=== PATIENT | male | born 1955 | race Caucasian/White ===

== ENCOUNTER 2017-10-10 00:12 | Inpatient (IN) | payer OTHER ==
[2017-10-10 01:28] LABS: Troponin I Less than 0.010 ng/mL (< 0.028)
[2017-10-10 03:56] LABS: Troponin I Less than 0.010 ng/mL (< 0.028)
[2017-10-10] MEDS ORDERED: Fentanyl 100 MCG/2 ML VIAL ONE (05:50)
--- NOTE | 2017-10-10 08:09 | CT ---
PRELIMINARY REPORT/[facility]/EMERGENCY AFTER HOURS PROCEDURE: EXAM: CT Abdomen and Pelvis With Intravenous Contrast EXAM DATE/TIME: Exam ordered 10/10/2017 2:35 AM CLINICAL HISTORY: 62 years old, male; Pain; Abdominal pain; Generalized; Patient HX: 62m transfer from [facility] for generali zed weakness. Found to be in a fib with rvr at a rate of 140's given lovenox and started on dilt drip . Patient now complaining of diffuse abdominal pain. Has not been taking coumadin in 1 week. Denies chest pain and shortness of breath TECHNIQUE: Axial computed tomography images of the abdomen and pelvis with intravenous contrast. All CT scans at this facility use one or more dose reduction techniques, viz.: automated exposure control; ma/kV adjustment per patient size (including targeted exams where dose is matched to indication; i.e. head); or iterative reconstruction technique. Coronal reformatted images were created and reviewed. CONTRAST: 100 mL of ISO 370 administered intravenously. COMPARISON: No relevant prior studies available. FINDINGS: Lower thorax: No acute findings. ABDOMEN: Liver: No pneumatosis or portal/mesenteric venous gas. Gallbladder and bile ducts: Unremarkable. No calcified stones. No ductal dilation. Pancreas: Unremarkable. No mass. No ductal dilation. Spleen: Unremarkable. No splenomegaly. Adrenals: Unremarkable. No mass. Kidneys and ureters: Unremarkable. No solid mass. No hydronephrosis. Stomach and bowel: Inflammatory thickening of the wall of short segments of distal ileum, including t he terminal ileum, as well as the colon, consistent with enteritis and colitis. No intestinal obstruc tion. Appendix: Appendix not visualized. No evidence of appendicitis. PELVIS: Bladder: Unremarkable. No mass. Reproductive: Unremarkable as visualized. ABDOMEN and PELVIS: Intraperitoneal space: Trace volume ascites. No pneumoperitoneum or abscess. Bones/joints: No acute fracture. No dislocation. Soft tissues: Bilateral fat containing inguinal hernias. 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 No rupture. SMV and SMA are patent as far as can be traced. Lymph nodes: Unremarkable. No enlarged lymph nodes. IMPRESSION: 1. Enteritis, including the terminal ileum, and colitis. Findings are most likely a result of infecti on or inflammatory bowel disease. Ischemia less likely but not excluded. No specific ancillary findin gs of bowel ischemia. 2. Trace volume ascites. Thank you for allowing us to participate in the care of your patient. Dictated and Authenticated by: Brent Lacey MD 10/10/2017 3:23 AM Central Time ([place] & [place]) FINAL REPORT CT ABDOMEN AND PELVIS WITH IV CONTRAST: FINDINGS/IMPRESSION: I agree with the preliminary report given by Dr. Brent Lacey of [facility]. Additionally, there is colo atul diverticulosis without diverticulitis. POS: OFF
[2017-10-10] MEDS ORDERED: DEXTROSE IVPB SCH (08:15)
[2017-10-10] MEDS ORDERED: AMIODARONE HCL IVPB SCH (08:15)
[2017-10-10] MEDS ORDERED: WATER IVPB SCH (08:15)
[2017-10-10] MEDS ORDERED: ADMIXTURE FEE IVPB SCH (08:15)
[2017-10-10] MEDS ORDERED: Lorazepam 2 MG/ML VIAL ONE (09:05)
[2017-10-10] MEDS ORDERED: Zolpidem Tartrate 5 MG TAB PO PRN (11:07)
[2017-10-10] MEDS ORDERED: Acetaminophen 325 MG TAB PO PRN (11:07)
[2017-10-10 11:11] VITALS: BMI 16.0
[2017-10-10] MEDS ORDERED: Lorazepam 2 MG/ML VIAL SLOW IVP PRN ×2 (11:18→21:49)
[2017-10-10] MEDS ORDERED: Sodium Chloride 0.9% 1,000 ML IV SCH ×4 (11:45→21:45)
[2017-10-10] MEDS ORDERED: Enoxaparin Sodium 60 MG/0.6 ML SYRINGE SC SCH (12:00)
--- NOTE | 2017-10-10 12:34 | HP ---
CHIEF COMPLAINT: Palpitation and weakness. HISTORY OF PRESENT ILLNESS: This is a 62-year-old male admitted to the hospital because of palpitati ons, weakness, as well as having some abdominal pain. Patient's history obtained from his daughter a s he is a very poor history provider. A 62-year-old male, who apparently has a significant history f or coronary artery bypass grafting x3, hypertension, history of diabetes, a 60 pound weight loss in t he last 3-4 months per daughter, and the patient presents with a mild complaints of abdominal pain an d palpitations. Patient states that he has had a history of atrial fibrillation in the past and has not kept up with his medications, went to another hospital and was transferred here for further manag ement and care. The patient states that he does not have any nausea, vomiting, diarrhea, constipatio n, chest pains, fevers, or chills. Does admit to some shortness of breath on exertion. Patient also admits to smoking 1-2 packs of cigarettes a day for the past 50 years. The patient denies any prior history of strokes, but per daughter, he has had a history of cardiac bypass x3, was apparently a di abetic in the past; however, was recently told that he does not require anymore medications or pills given the significant amount of weight loss that he has had, as well as properly controlled blood sug ars. The patient otherwise has no other complaints. No alleviating or aggravating factors. The pat ient seen and examined in the emergency room. Daughter at bedside. ALLERGIES: CODEINE, PENICILLIN, PROTAMINE, patient also admits allergies to CLONAZEPAM; however, raz es VALIUM at home. PAST MEDICAL HISTORY: Chronic smoking history, binge drinking, cardiac bypass x3, hypertension, weig ht loss, and diabetes mellitus type 2. FAMILY HISTORY: Positive for diabetes, high blood pressure, and stroke. SOCIAL HISTORY: The patient admits to smoking a pack or 2 cigarettes a day for the past 50 years. T he patient also admits to binge drinking, last drink was approximately a week ago. HOME MEDICATIONS: See MAR. REVIEW OF SYSTEMS: Twelve-point review of systems performed, pertinent positives in the HPI, otherwi se negative. PHYSICAL EXAMINATION: VITAL SIGNS: Blood pressure was 118/90, heart rate atrial fibrillation rhythm of 109, respiratory ra te 12, and saturations 100% on 2 liters nasal cannula. GENERAL: Patient appearing very fidgety; however, in no acute distress, sitting in bed, appears very frail and weak. HEENT: Head is normocephalic, atraumatic. Pupils equal, round, reactive to light and accommodation. NECK: Supple. Palpable nontender, mobile thyroid. Oral cavity moist and pink. CARDIOVASCULAR: Irregular rate and rhythm. S1 and S2 appreciated. Faint systolic ejection murmur 1 /6 also appreciated. LUNGS: Wheezing noted in all lung castillo. Aerating well. No changes in AP diameter. ABDOMEN: Soft, nontender, positive bowel sounds. EXTREMITIES: 2+ peripheral pulses. No loss of sensory function or motor function. NEUROLOGIC: Cranial nerves II-XII intact. Alert, oriented x3, slow speech; however, does answer que stions appropriately. LABORATORY DATA: Pending. First set of troponins is less than 0.01. The patient had a CT scan of t he abdomen and pelvis done with contrast, which stated that the patient may have a neuritis of the te rminal ileum and colitis as well likely related to infectious process, colonic diverticulosis without diverticulitis also noted. ASSESSMENT AND PLAN: 1. Atrial fibrillation. 2. Hypertension. 3. Coronary artery disease. 4. Hyperlipidemia. 5. Diabetes mellitus type 2. 6. Weight loss. 7. Smoking abuse, nicotine abuse. 8. Alcohol abuse and binge drinking. 9. Enteritis. 10. At this point in time, we will admit the patient to the hospital. Consult, economic geographer Cardiology. Cardizem drip unavailable. We will start the patient on amiodarone drip. The patient does have a C HADS2-VASc score of 3. We will start the patient on Lovenox 100 q.12 hours. The patient's baseline weight is around 50 kilograms. 11. Target blood pressure of 120-140 systolic. 12. We will get an A1c and start the patient on a sliding scale if the A1c indicates the patient is diabetic. 13. IV fluids will be held at this point in time, patient can have a cardiac diet. 14. PT and OT evaluation. 15. We will provide the patient with Ativan for anxiety q.12 hours. 16. We will obtain TSH, urinalysis, urine drug screen, CBC, CMP, and liver function test. 17. We will follow up with lab work in a.m. and make any further adjustments as appropriate. 18. Case and plan discussed with the patient and the patient's daughter. They wish to have a code s tatus of FULL CODE for now; however, state that depending on results, they are open to changing code status to DNR/DNI after discussion with family. Case and plan discussed with the patient's daughter and the patient at length. They understand and agree with this plan.
[2017-10-10 13:01] LABS: ALT (SGPT) 14 U/L (8-55); AST (SGOT) 14 U/L (5-34); Albumin 3.3 g/dL (3.4-4.8); Alkaline Phosphatase 79 U/L (40-150); Bilirubin, Direct 0.1 mg/dL (0.1-0.3); Bilirubin, Total 0.3 mg/dL (0.2-1.2); Protein, Total 5.9 g/dL (5.8-8.1)
[2017-10-10] MEDS: Metoprolol Tartrate 5 MG/5 ML VIAL IVP SCH ×2 (13:10→13:50)
[2017-10-10] MEDS ORDERED: Morphine 4 MG/ML VIAL SLOW IVP PRN (13:43)
--- NOTE | 2017-10-10 14:07 | CON ---
DATE OF CONSULTATION: 10/10/2017 HISTORY OF PRESENT ILLNESS: The patient is a 62-year-old gentleman with a history of chronic atrial fibrillation, who presented after losing consciousness. The patient has a history of atrial fibrillation. He is on chronic anticoagulation therapy. The patient also has a history of coronary artery disease and is status post coronary bypass surgery x3. The patient has a history also of dementia and alcohol abuse. The patient was in his usual state of health when apparently he suddenly lost consciousness. The patient states that this occurred on several occasions. The patient denied having any palpitations. PAST MEDICAL HISTORY: 1. Coronary artery disease. 2. COPD. 3. Coronary bypass surgery. 4. Hypertension. PAST SURGICAL HISTORY: Appendectomy, knee surgery, wrist surgery and foot surgery. SOCIAL HISTORY: The patient has a long history of tobacco abuse. He consumes excessive amounts of alcohol. MEDICATIONS: See nursing list. FAMILY HISTORY: Positive family history of heart disease. ALLERGIES: CODEINE, PENICILLIN, CLONAZEPAM and PROTAMINE. REVIEW OF SYSTEMS: The patient denies any bruising, bright red blood and hematuria. PHYSICAL EXAMINATION: GENERAL: This is a thin gentleman, in no acute distress. VITAL SIGNS: Blood pressure is 120 and irregular heart. NECK: Showed no jugular venous distention. LUNGS: Coarse breath sounds bilateral. HEART: Irregular rate and rhythm, normal S1, S2. ABDOMEN: Nondistended. EXTREMITIES: Showed trace edema. SKIN: Warm and dry. NEUROLOGIC: Nonfocal. VASCULAR: Radial pulses 2+. LABORATORY: White blood count is 10.2, hemoglobin 11.3, hematocrit 35.1, platelets 158. Sodium is 139, potassium 3.9, chloride 101, bicarbonate 19, BUN 16, creatinine 1.0, glucose 171. Troponin less than 0.01. BNP is 140. His EKG revealed atrial fibrillation with a rapid ventricular response and ST-T wave abnormality suggestive of ischemia. IMPRESSION: 1. Syncope. 2. Atrial fibrillation with a rapid ventricular response. 3. History of coronary bypass surgery. 4. History of alcohol-induced dementia. 5. Hypertension. 6. Tobacco abuse. 7. Ethanol abuse. This gentleman presents with rapid atrial fibrillation and syncope. From a cardiac standpoint, we will ask EP to evaluate since he may be at high risk being on long-term anticoagulation with his history of dementia, falling, and ethanol abuse. We will control the patient's heart with IV amiodarone and use IV Lopressor. We will follow this patient with you through his hospitalization. NAV
--- NOTE | 2017-10-10 15:12 | CON-2 ---
Dictated as scribe for Dr. Paul Ochoa DATE OF CONSULTATION: 10/10/2017 REFERRING PHYSICIAN: Florentin Jha M.D. REASON FOR CONSULTATION: Atrial arrhythmias. HISTORY OF PRESENT ILLNESS: Mr. Cao is a 62-year-old gentleman who presented to the emergency room today 10/10/2017 with complaints of palpitations , weakness, passing out and also some abdominal pain. His daughter is with him as patient is a very poor historian and struggles significantly with alcohol abuse and some dementia. He reports that he has a history of atrial fibrillation and that he has been on chronic anticoagulation with Coumadin for years now. He has not been consistent with his therapy on this and when he runs out, will just go on aspirin alone. He denies any prior history of strokes or any recent stroke or stroke-like symptoms including unilateral weakness, speech changes, vision changes, paresthesias or facial droop. He does report that he occasionally will have his heart race, that he has dizziness and lightheadedness and that this usually occurs with exertion which he attributes to working too hard outside. He also reports that he has had some mild abdominal pain, but denies nausea, vomiting, diarrhea, constipation or blood in the stool. He has shortness of breath with exertion and endorses smoking 1-2 packs of cigarettes a day for past 50 years. He continues to binge drink on a frequent basis, but reports his last drink was approximately a week ago. In the past has seen a Dr. Aurora So for primary care and Dr. Jesus Tong for Cardiology. PAST MEDICAL HISTORY: 1. Atrial fibrillation, status post maze procedure at time of coronary artery bypass grafting. 2. Coronary artery disease, status post 2-vessel bypass in 2012 3. Hyperlipidemia. 4. Hypertension. 5. Chronic obstructive pulmonary disease. 6. Hypothyroidism. 7. Type 2 diabetes. 8. Dementia, secondary to alcohol abuse. PAST SURGICAL HISTORY: 1. Coronary artery bypass, 2-vessel in 2013 with maze procedure in 2013 ( unsuccessful). 2. Electrical cardioversion x4 for atrial fibrillation. FAMILY HISTORY: Positive for coronary artery disease (brother). Negative for aortic aneurysm. SOCIAL HISTORY: Current tobacco habituation greater than a [id number] history. Binge drinks at least on a weekly basis. Reports no illicit drug use. REVIEW OF SYSTEMS: CONSTITUTIONAL: Negative for fevers, chills or fatigue. HEENT: Negative for blurred vision, ringing in the ears or nose bleeds. CARDIOVASCULAR: Negative for chest pain. Positive for heart racing and palpitations. RESPIRATORY: Positive for dyspnea on exertion. Negative for blood in the sputum, productive cough or progressive shortness of breath. GI: Negative for nausea, vomiting, diarrhea or blood in the stool. Positive for mild abdominal pain. GENITOURINARY: Negative for frequency, hesitancy or blood in the urine. NEUROLOGIC: Positive for multiple episodes of passing out in the recent past, most follow standing up after using the toilet. HEMATOLOGIC: Negative for excessive uncontrolled bleeding or bleeding dyscrasias. MEDICATIONS AT HOME: PENICILLIN, PROAMATINE, CODEINE, CLONAZEPAM. CURRENT MEDICATIONS: (According to office visit by Dr. Jesus Tong 2016), buspirone HCL 30 mg 1 tab b.i.d., levothyroxine sodium 75 mcg 1 tab p.o. daily, lovastatin 10 mg p.o. daily, sublingual nitro as needed, propranolol 40 mg p.o. b.i.d., albuterol as needed, aspirin 325 mg daily, Coumadin 5 mg as directed, Norvasc 5 mg 1 tablet daily, ropinirole 0.5 mg p.o. at bedtime, Spiriva as directed, Symbicort 160/4.5 oral inhaler, trazodone 100 mg 2 tabs p.o. at bedtime and Ventolin HFA as directed. PHYSICAL EXAMINATION: VITAL SIGNS: Temperature 97.2, heart rate is 101, blood pressure 118/61, respirations are 20, oxygen is 98% on room air. The patient is 6 feet, 118 pounds, BMI of 16.1. GENERAL: The patient is a malnourished male in no acute distress. He is resting in bed, but is very fidgety. He appears older than his stated age , frail and weak. HEENT: He is normocephalic, atraumatic. His pupils are equal, round, reactive to light and accommodating. Sclerae are anicteric. His speech is clear and he is somewhat restless in his behavior. NECK: Supple without jugular venous distention. His thyroid is nonpalpable and carotids are without bruit. CARDIOVASCULAR: His heart rate is irregularly irregular. His extremities are warm and dry to touch without clubbing, cyanosis or edema. PMI is nondisplaced. PULMONARY: Respirations are even and unlabored, but wheezing is noted throughout all lung castillo bilaterally. ABDOMEN: Soft and nontender, no palpable masses. Hepatojugular reflex is negative. NEUROLOGIC: Cranial nerves II-XII is grossly intact and exam is nonfocal. The patient answers orientation questions appropriately, but attention span is quite short. DATABASE: Chemistry from today; hemoglobin A1c is 5.0, total bilirubin is 0.3, AST is 14, ALT 14, alkaline phosphatase is 79. Two troponin I's have been collected and are less than 0.01. Albumin is 3.3. TSH is 6.15. No other lab results are available. Telemetry and EKGs were personally reviewed and indicate typical CTI dependent flutter with variable AV conduction, mostly 2:1. No atrial fibrillation is seen. Previous EKGs document RVR as high as 137 beats per minute. The patient is currently maintaining in the 90-110 beat per minute range. IMPRESSION: 1. Typical atrial flutter with rapid ventricular response. 2. History of atrial fibrillation, status post maze procedure without evidence of recurrence this admission; however, according to record review with multiple failed cardioversions for atrial fibrillation in the past. 3. Coronary artery disease with prior 2-vessel bypass in 2012. 4. Alcohol abuse. 5. Loss of consciousness with possible orthostatic blood pressure with elevated heart rates given his arrhythmia. Possibly cardiogenic in origin, but likely a vasovagal response. PLAN: 1. Our recommendation is to proceed with CTI ablation for typical atrial flutter tomorrow after a SUKHJINDER done by Cardiology to evaluate for any possible intracoronary thrombus given the patient's intermittent and less than compliant therapy with the warfarin. 2. We will follow up as an outpatient for additional evaluation for a Watchman given the patient's recent falls and risk for bleeding. We will monitor for recurrence of arrhythmias and discuss Watchman further with him in clinic. 3. Regarding the patient's alcohol abuse and his possible withdrawal symptoms beginning we will schedule the patient for his ablation tomorrow, but if he begins to have significant withdrawal symptoms the procedure may need to be postponed for patient safety. Thank you for allowing us to participate in the care of this patient. I performed the interview and physicial exam with decision making personally. NAV
[2017-10-10] MEDS ORDERED: ISOVUE-370 76%-LOCM 1 ML ONE (16:53)
[2017-10-10] MEDS ORDERED: PROVENTIL INHALER 6.7 G (200 INHALATIONS) INH PRN (17:10)
[2017-10-10] MEDS ORDERED: Nitroglycerin 0.4 MG TAB (25 Tab Bottle) SL PRN (17:10)
[2017-10-10 17:56] LABS: Bilirubin Small (Negative); Blood, Urine Negative (Negative); Clarity CLEAR (Clear); Glucose, Urine (Dipstick) Negative (Negative); Leukocyte Negative (Negative); Nitrite Negative (Negative); Protein, Urine (Dipstick) Trace mg/dL (Neg-Trace); Urobilinogen 0.2 mg/dL (0.2-1.0)
[2017-10-10] MEDS ORDERED: Haloperidol Lactate 5 MG/ML VIAL ONE (18:03)
[2017-10-10 18:05] LABS: Specific Gravity, Urine Greater than 1.060 (1.002-1.036)
[2017-10-10 18:06] LABS: Amphetamine Not Detected (NotDetected); Barbiturates Screen Detected (NotDetected); Benzodiazepine Screen Detected (NotDetected); Cocaine Metabolite Screen Not Detected (NotDetected); Medtox Control Line Valid? VALID (VALID); Medtox Reader # READER 1; Methadone Not Detected (NotDetected); Methamphetamine Not Detected (NotDetected); Opiate Screen Detected (NotDetected); Oxycodone Screen Not Detected (NotDetected); Phencyclidine (PCP) Not Detected (NotDetected); THC/Cannabinoid Screen Detected (NotDetected); Tricyclic Screen Not Detected (NotDetected)
[2017-10-10] MEDS: Amiodarone HCl 450 MG, Admixture Fee 1 EACH in Dextrose 5% in Water 250 ML IVPB SCH (18:06)
[2017-10-10 18:08] LABS: Bacteria/HPF None Seen HPF (None Seen); Hyaline Casts/LPF 0-3 HYALINE CAST LPF (0-3 Hyaline); Squamous Epithelial None Seen HPF (0-3); WBC/HPF 0-3 HPF (0-3)
[2017-10-10] MEDS ORDERED: Haloperidol Lactate 5 MG/ML VIAL IM SCH (18:15)
[2017-10-10] MEDS ORDERED: Propranolol 40 MG TAB PO SCH (21:00)
[2017-10-10] MEDS ORDERED: rOPINIRole HCl 1 MG TAB PO SCH (21:00)
[2017-10-10] MEDS: Enoxaparin Sodium 60 MG/0.6 ML SYRINGE SC SCH (22:00)
[2017-10-10] MEDS: Montelukast Sodium 10 mg Tablet PO SCH (22:00)
[2017-10-10] MEDS: Metoprolol Tartrate 25 MG TAB PO SCH (22:00)
[2017-10-10] MEDS: Primidone 50 MG TAB PO SCH (22:50)
--- NOTE | 2017-10-10 22:53 | CON ---
DATE OF CONSULTATION: 10/10/2017 SERVICE: Pulmonary Medicine. REASON FOR CONSULTATION: Alcohol withdrawal. HISTORY OF PRESENT ILLNESS: The patient is a 62-year-old white male with past medical history significant for alcohol abuse. Every time he gets into the hospital setting and is away from his alcohol, he has severe withdrawal features. The same has occurred today. He came in with a negative alcohol level. That being said, he continues to heavily drink. He lives with his brother. It is a fairly bad social situation, and APS is possibly going to be getting involved. Either way, the daughter is here and is providing a little bit of history. She is not present on a daily basis in her dad's life. That being said, he has had multiple previous presentations with psychosis associated with interruption of alcohol. She is not aware of him ever having had a seizure. He certainly cannot provide any additional elements of the history at this time. PAST MEDICAL HISTORY: 1. Alcohol abuse with history of withdrawal. 2. Tobacco abuse. 3. Hypertension. 4. Type 2 diabetes mellitus. PAST SURGICAL HISTORY: Coronary bypass graft. FAMILY HISTORY: Noncontributory. SOCIAL HISTORY: He smokes 2 packs of cigarettes on a daily basis and has done so for greater than 40 years. He drinks extraordinarily heavily and quit roughly one week prior to admission, if not a little less. There is no known illicit drugs. ALLERGIES: CODEINE, PENICILLIN. PROTAMINE, CLONAZEPAM. REVIEW OF SYSTEMS: This cannot be obtained as the patient is currently encephalopathic. PHYSICAL; EXAMINATION: VITAL SIGNS: Afebrile. Pulse 146, blood pressure 136/88, respirations 25, saturation 100% on room air. GENERAL: The patient is awake and alert. He is in no apparent distress. LUNGS: Excellent air entry. There is a prolonged expiratory phase, but I do not hear adventitious sounds, wheezing, rhonchi, or crackles. HEART: Tachycardic. Irregular. ABDOMEN: Soft, nontender, nondistended. Bowel sounds are positive. MUSCULOSKELETAL: No cyanosis or clubbing. No pitting in the bilateral lower extremities. NEUROLOGIC: Grossly nonfocal. LABORATORY DATA: Hemoglobin A1c 5.0. Liver function studies are essentially unremarkable. Urinalysis is negative. Urine drug screen is positive for opiates, barbiturates, benzodiazepines, and cannabinoids. CBC is mostly unremarkable except for hemoglobin 11.3. Platelets are 158. INR 1.2. Troponins are negative x3. Basic metabolic profile is completely unremarkable with a normal creatinine. Plasma alcohol less than 10. IMAGING: CT of the abdomen and pelvis demonstrates findings consistent with enteritis including the terminal ileum in colon. Ischemic bowel is a possibility. Minimal ascites is present. ASSESSMENT: 1. Delirium tremens. 2. Alcohol abuse, heavy. 3. Atrial fibrillation with rapid ventricular response. 4. Dehydration, severe. 5. Colitis. PLAN: The patient is dehydrated now, so we are going given 2 liters of normal saline. After this, I will provide him with half NS, add 100 an hour to rehydrate his intracellular space. We will put him on enteric antimicrobial therapy. This may be ischemic. All centrally acting medications including narcotic medications are going to be interrupted. We will put him on Precedex; however, as this hopefully will help with some of his withdrawal features. The normal saline will be suspended in favor of half normal saline, Pulmonary Critical Care will continue to follow while the patient remains in this location. 70 minutes have been devoted to this patient in various activities. I personally reviewed all imaging studies and laboratory data noted within this document. For fifty percent of this time, I was interacting with the patient at the bedside or coordinating care with the care team. For the remainder of the time I was immediately available to the patient in the hospital unit. NAV
[2017-10-10] MEDS: Bupropion 100 MG SR TAB PO SCH (23:22)
[2017-10-10] MEDS: Sodium Chloride 0.45% 1,000 ML IV SCH (23:42)
[2017-10-11 05:33] LABS: #Lymphocytes 0.7 thou/uL (1.20-3.40); #Monocytes 1.1 thou/uL (0.11-0.59); #Neutrophils 6.4 thou/uL (1.40-6.50); %Basophils 0.2 % (0.0-1.0); %Eosinophils 0.5 % (0.0-10.0); %Lymphocytes 8.6 % (21.0-51.0); %Monocytes 13.5 % (0.0-10.0); %Neutrophils 77.2 % (42.0-75.0); Hemoglobin 8.9 g/dL (14.0-18.0); Mean Corpuscular HGB CONC 32.3 g/dL (32.0-36.0); Mean Corpuscular Hemoglobin 27.9 pg (27.0-31.0); Mean Corpuscular Volume 86.5 fl (80.0-94.0); Mean Platelet Volume 10.9 fL (7.4-10.4); Platelet Count 137 thou/uL (130-400); Red Blood Cell (RBC) Count 3.17 mill/uL (4.70-6.10); White Blood Cell (WBC) Count 8.3 thou/uL (4.8-10.8)
[2017-10-11 05:41] LABS: Anion Gap 11 mmol/L (10-20); BUN (Urea Nitrogen) 10 mg/dL (8.4-25.7); Calc. Creatinine Clearance 75 mL/min (70-130); Calcium 8.1 mg/dL (7.8-10.44); Carbon Dioxide 22 mmol/L (23-31); Chloride 108 mmol/L (98-107); Estimated GFR-MDRD Greater than 90; Glucose 127 mg/dL (80-115); Potassium 3.5 mmol/L (3.5-5.1); Sodium 137 mmol/L (136-145)
[2017-10-11] MEDS: Levothyroxine Sodium 75 MCG TAB PO SCH (06:00)
[2017-10-11] MEDS: Amlodipine 5 MG TAB PO SCH (08:44)
[2017-10-11] MEDS: Metoprolol Tartrate 25 MG TAB PO SCH ×2 (08:44→21:32)
[2017-10-11] MEDS: Multivit, Therapeutic 1 TAB PO SCH (08:45)
[2017-10-11] MEDS: Ciprofloxacin 500 MG TAB PO SCH ×2 (08:45→21:32)
[2017-10-11] MEDS: metroNIDAZOLE 500 MG TAB PO SCH ×3 (08:45→21:32)
[2017-10-11] MEDS: Enoxaparin Sodium 60 MG/0.6 ML SYRINGE SC SCH ×3 (08:46→21:31)
[2017-10-11] MEDS: Bupropion 100 MG SR TAB PO SCH ×2 (08:57→21:32)
[2017-10-11] MEDS: Primidone 50 MG TAB PO SCH ×2 (08:58→21:41)
[2017-10-11] MEDS ORDERED: Cipro 250 MG TAB PO SCH (09:00)
[2017-10-11] MEDS: Sodium Chloride 0.45% 1,000 ML IV SCH ×3 (09:00→23:42)
[2017-10-11] MEDS: Amiodarone HCl 450 MG, Admixture Fee 1 EACH in Dextrose 5% in Water 250 ML IVPB SCH (10:22)
--- NOTE | 2017-10-11 10:30 | PDOC.PN ---
- Subjective Encounter Start Date: 10/11/17 Encounter Start Time: 10:29 CC: Afib Sub: Pt denies dyspnea - Objective Resuscitation Status: Resuscitation Status FULL:Full Resuscitation Vital Signs & Weight: Vital Signs (12 hours) Temp Pulse Resp BP Pulse Ox 10/11/17 08:44 127 H 95/54 L 10/11/17 07:40 98.5 F 105 H 24 H 94 L 10/11/17 07:00 98.5 F Weight Weight 118 lb 6.212 oz Most Recent Monitor Data Heart Rate from ECG 139 NIBP 94/62 NIBP BP-Mean 72 Respiration from ECG 25 SpO2 96 I&O: 10/10/17 10/11/17 10/12/17 06:59 06:59 06:59 Intake Total 773 0 Output Total 755 245 Balance 18 -245 Result Diagrams: 10/11/17 04:48 10/11/17 04:48 Phys Exam - Physical Examination Constitutional: NAD HEENT: moist MMs Neck: no JVD Respiratory: no wheezing, no rales, no rhonchi Cardiovascular: no significant murmur, irregular s1 s2 tachy, no gallop Gastrointestinal: soft Musculoskeletal: no edema Neurological: non-focal Psychiatric: normal affect, A&O x 3 Skin: no rash Dx/Plan - Plan PT IS 62 YRS OLD MALE 1. Afib RVR 2. Alcohol abuse 3. HTN 4. HPL 5. DM type 2 6. Acute enteritis Plan: 1. Currently on amiodarone drip. Scheduled for cardioversion this afternoon. Cardio on board. 2. Continue prn ativan and folic acid. AGitation stable at present 3. Continue statin 4. monitor blood sugars closely. Will add insulin sliding scale. 5. Continue cipro and flagyl 6. Currently on lovenox bid for anticoagulation case d/w pt & RN
[2017-10-11] MEDS ORDERED: Dextrose 5% in Water 1,000 ML IV PRN (12:51)
[2017-10-11] MEDS ORDERED: HumaLOG 300 UNITS/3 ML VIAL SC PRN ×2 (12:51)
[2017-10-11] MEDS ORDERED: Dextrose 50% Abboject 50 ML SYRINGE SLOW IVP PRN (12:51)
[2017-10-11] MEDS ORDERED: Lidocaine 1% (PF) 30 ML VIAL ONE (14:09)
[2017-10-11] MEDS ORDERED: Propofol 1,000 MG/100 ML VIAL IV ONE (14:15)
[2017-10-11] MEDS ORDERED: Midazolam HCl 5 mg/5 ml Vial ONE (14:15)
[2017-10-11] MEDS ORDERED: Heparin 10,000 UNITS/1 ML VIAL ONE (14:58)
[2017-10-11] MEDS ORDERED: PHENYLEPHRINE-NS 100 MCG/ML 10 ML SYRINGE ONE ×2 (15:37→17:08)
[2017-10-11] MEDS ORDERED: ePHEDrine/0.9% NaCl/PF SYRINGE 50 mg/10 ml ONE ×2 (15:37→17:08)
[2017-10-11] MEDS ORDERED: PROPOFOL 200 MG/20 ML VIAL ONE (15:37)
[2017-10-11] MEDS: Lovastatin 20 MG TAB PO SCH (16:33)
[2017-10-11] MEDS ORDERED: PROPOFOL 20 ML ONE (17:00)
[2017-10-11] MEDS ORDERED: DOPamine 400 MG/D5W 250 ML 250 ML ONE (18:08)
[2017-10-11] MEDS ORDERED: Nitroglycerin 0.4 MG TAB (25 Tab Bottle) SL PRN (19:21)
[2017-10-11] MEDS ORDERED: diphenhydrAMINE 25 MG CAP PO PRN (19:21)
[2017-10-11] MEDS ORDERED: Ondansetron HCl/PF 4 MG/2 ML Vial IVP PRN (19:21)
[2017-10-11] MEDS ORDERED: Mag-Al 1200 mg/1200 mg/30 ML UDCUP PO PRN (19:21)
[2017-10-11] MEDS ORDERED: Silver Sulfadiazine 1% Cream 50 GM JAR TOP PRN (19:21)
[2017-10-11] MEDS ORDERED: Bisacodyl 5 MG TAB PO PRN (19:21)
[2017-10-11] MEDS ORDERED: Bisacodyl 10 MG SUPP PR PRN (19:21)
[2017-10-11] MEDS ORDERED: Temazepam 15 MG CAP PO PRN (19:21)
--- NOTE | 2017-10-11 20:25 | PRG ---
DATE OF SERVICE: 10/11/2017 SERVICE: Pulmonary Medicine. INTERVAL HISTORY: The patient actually did fairly well on Precedex. Despite the Precedex and his im proved comfort, he had significant agitation still. He pulled out multiple IVs which had to be repla mini overnight. Thankfully, he did not have any additional falls. He cannot provide any additional e lements of the history, but he is much more awake and alert today. Otherwise, there has been no inte rval change to his condition. PHYSICAL EXAMINATION: VITAL SIGNS: Afebrile, pulse 83, blood pressure 90/49, respirations 19, saturation 95% on room air. GENERAL: The patient is awake and alert. He has minimal agitation. He is certainly directable toda y. HEENT: Normocephalic, atraumatic. Sclerae are white, conjunctivae pink. Oral mucosa is moist witho ut lesions. LUNGS: Excellent air entry. There is no prolonged expiratory phase or wheezing present. HEART: Normal rate, regular. ABDOMEN: Soft, nontender, nondistended. Bowel sounds are positive. MUSCULOSKELETAL: No cyanosis or clubbing. There is no pitting in the bilateral lower extremities. NEUROLOGIC: Grossly nonfocal. LABORATORY DATA: WBC 8.3, hemoglobin 8.9, platelets 137,000. Neutrophil count is 77% predicted. Ba sic metabolic profile is unremarkable. Hemoglobin A1c falls within the normal limits. TSH 6.1. Uri ne drug screen is positive for multiple substances. ASSESSMENT: 1. Delirium tremens. 2. Alcohol abuse, heavy. 3. Polysubstance drug abuse. 4. Atrial fibrillation with rapid ventricular response. 5. Dehydration, improving. 6. Colitis. PLAN: The patient is really doing quite well from a respiratory standpoint. Hemodynamically, he rem ains stable. It does not appear that he has any significant end-organ disease at this point. He is going down for an ablation at some point, but it is perfectly reasonable to postpone this for a coupl e of days given his relative stability for his other neurologic issues to stabilize. We will replace his potassium. Pulmonary Critical Care will continue to follow as he will remain in this location f or at least the next 24 hours. We will wean the Precedex as tolerated.
[2017-10-11] MEDS ORDERED: Potassium Chloride 20 MEQ TAB PO SCH (20:30)
[2017-10-11] MEDS: Montelukast Sodium 10 mg Tablet PO SCH (21:32)
--- NOTE | 2017-10-11 23:45 | ECHO ---
DATE OF SERVICE: 10/11/17 The patient is a 62-year-old man with history of ETOH abuse who had prior history of coronary bypass grafting surgery. He is here for SUKHJINDER guided ablation procedure to rule out intracardiac clots. PROCEDURE: The patient received a propofol per Anesthesia specialist. After adequate the level of sedation achi eved, a standard transesophageal echocardiogram probe was passed into esophagus without difficulty. Patient tolerated procedure well, no complications noted. RESULTS: The Left atrium is upper limit normal in size, left appendage is well visualized, appears to be occlu ded by the surgical ligation. No apparent leak is detected. Four --------- were seen. Interatrial s eptum is free of defect. Mitral valve is with trace regurgitation only. The tricuspid valve also wi th mild regurgitation. Aortic valve has three leaflets without regurgitation or stenosis. Pulmonic valve not regurgitant. Pericardial space without effusion. Left ventricular function is preserved. The visualized portion of ascending and descending aorta without adherent atheroma. No aneurysm or d issection is identified. CONCLUSION: 1. No intracardiac clots detected. 2. Occluded left appendage possibly due to prior surgical ligation without apparent leak. 3. Normal left ventricular function. 4. No significant valvular heart disease. PLAN: 1. Proceed with ablation.
[2017-10-12 05:27] LABS: #Eosinphils 0.1 thou/uL (0.0-0.7); #Lymphocytes 0.7 thou/uL (1.20-3.40); #Monocytes 0.8 thou/uL (0.11-0.59); #Neutrophils 4.2 thou/uL (1.40-6.50); %Basophils 0.3 % (0.0-1.0); %Eosinophils 0.9 % (0.0-10.0); %Lymphocytes 12.3 % (21.0-51.0); %Monocytes 14.2 % (0.0-10.0); %Neutrophils 72.2 % (42.0-75.0); Hemoglobin 7.5 g/dL (14.0-18.0); Mean Corpuscular HGB CONC 32.2 g/dL (32.0-36.0); Mean Corpuscular Hemoglobin 27.5 pg (27.0-31.0); Mean Corpuscular Volume 85.2 fl (80.0-94.0); Mean Platelet Volume 9.9 fL (7.4-10.4); Platelet Count 122 thou/uL (130-400); Red Blood Cell (RBC) Count 2.72 mill/uL (4.70-6.10); White Blood Cell (WBC) Count 5.8 thou/uL (4.8-10.8)
[2017-10-12 05:34] LABS: Anion Gap 9 mmol/L (10-20); BUN (Urea Nitrogen) 7 mg/dL (8.4-25.7); Calc. Creatinine Clearance 108 mL/min (70-130); Calcium 7.8 mg/dL (7.8-10.44); Carbon Dioxide 23 mmol/L (23-31); Chloride 108 mmol/L (98-107); Estimated GFR-MDRD Greater than 90; Glucose 90 mg/dL (80-115); Potassium 3.8 mmol/L (3.5-5.1); Sodium 136 mmol/L (136-145)
[2017-10-12] MEDS: Levothyroxine Sodium 75 MCG TAB PO SCH (05:46)
[2017-10-12] MEDS: Primidone 50 MG TAB PO SCH ×2 (08:57→22:02)
[2017-10-12] MEDS: Multivit, Therapeutic 1 TAB PO SCH (08:58)
[2017-10-12] MEDS: Ciprofloxacin 500 MG TAB PO SCH ×2 (08:58→22:05)
[2017-10-12] MEDS: Enoxaparin Sodium 60 MG/0.6 ML SYRINGE SC SCH ×2 (08:58→22:01)
[2017-10-12] MEDS: metroNIDAZOLE 500 MG TAB PO SCH ×3 (08:58→22:03)
--- NOTE | 2017-10-12 09:26 | PDOC.CTH ---
<Gemma Mitchell - Last Filed: 10/12/17 09:24> Cardiology Progress Note - Subjective EP progress note: Patient seen and examined. No new cardiac complaints. Rested well overnight after ablation. No pain at right groin sheath site. No heart racing, chest pain , palpitations, or dizziness. - Objective Vital Signs Temp Pulse Resp Pulse Ox 10/12/17 07:04 98.5 F 82 22 H 98 10/12/17 07:00 98.5 F 10/12/17 04:00 98.2 F 10/12/17 00:00 97.8 F Admit Weight 118 lb Weight 144 lb 13.499 oz 10/11/17 10/12/17 10/13/17 06:59 06:59 06:59 Intake Total 773 4016 0 Output Total 755 2360 180 Balance 18 1656 -180 - Physical Examination General/Neuro: alert & oriented x3, NAD Neck: no JVD present Lungs: unlabored respirations Heart: PMI normal, RRR Abdomen: NT/ND, soft - Telemetry Telemetry Rhythm: NSR - Labs Result Diagrams: 10/12/17 05:00 10/12/17 05:00 Troponin/CKMB Troponin I Less than 0.010 ng/mL (< 0.028) 10/10/17 03:17 - Assessment/Plan 1. Typical atrial flutter s/p CTI ablation. maintaining NSR overnight. No recurrence of flutter. 2. Previously on warfarin for recurrent AFib. Multiple recent falls and high risk for bleeding complications. Poor medication and monitoring compliance. Patient had MICHAEL surgically closed at time of bypass and MAZE. SUKHJINDER on 10/11 revealed appropriate closure and no residual flow or appendage. Ok to remain off OAC and continue with aspirin 81mg alone. 3. Anemia- Hgb decrease from 8.9 to 7.5, to be followed by medicine. No physical signs of bleeding post ablation. Recommend re-checking Hgb today. Will see as outpatient in 4-6 weeks for routine follow up. Ok for DC by EP when deemed medically stable <Paul Ochoa - Last Filed: 10/12/17 15:48> Cardiology Progress Note - Objective Vital Signs Temp Pulse Pulse Pulse Resp BP BP 10/12/17 12:00 98.7 F 10/12/17 09:28 94 97/54 L 10/12/17 08:58 100 96 141/59 H 10/12/17 07:04 98.5 F 82 22 H 10/12/17 07:00 98.5 F 10/12/17 04:00 98.2 F BP Pulse Ox Pulse Ox Pulse Ox 10/12/17 12:00 10/12/17 09:28 10/12/17 08:58 117/68 93 L 99 10/12/17 07:04 98 10/12/17 07:00 10/12/17 04:00 Admit Weight 118 lb Weight 144 lb 13.499 oz 10/11/17 10/12/17 10/13/17 06:59 06:59 06:59 Intake Total 773 4016 480 Output Total 755 2360 380 Balance 18 1656 100 - Labs Result Diagrams: 10/12/17 14:42 10/12/17 05:00 Troponin/CKMB Troponin I Less than 0.010 ng/mL (< 0.028) 10/10/17 03:17 Attending Addendum - Attending Addendum Date/Time: 10/12/17 4436 I personally evaluated the patient and discussed the management with MS Mitchell. I agree with the History, Examination, Assessment and Plan documented above with any addition or exceptions noted below.
[2017-10-12] MEDS: Amiodarone 200 MG TAB PO SCH ×2 (09:27→22:04)
[2017-10-12] MEDS: Bupropion 100 MG SR TAB PO SCH ×2 (09:27→22:01)
[2017-10-12] MEDS: Metoprolol Tartrate 25 MG TAB PO SCH ×2 (09:28→22:05)
[2017-10-12] MEDS: Amlodipine 5 MG TAB PO SCH (09:28)
--- NOTE | 2017-10-12 09:54 | PRG ---
DATE OF SERVICE: 10/12/2017 SERVICE: Pulmonary Medicine. INTERVAL HISTORY: The patient is doing fantastic this morning. He is awake and alert. He is orient ed x2. He is cooperative. He is off of his sedation medication. Otherwise, there has been no inter bijan change to his condition. PHYSICAL EXAMINATION: VITAL SIGNS: Afebrile, pulse 92, blood pressure 115/63, respirations 27, saturation 99% on room air. GENERAL: The patient is awake and alert, in no apparent distress. HEENT: Normocephalic, atraumatic. Sclerae are white. Conjunctivae pink. Oral mucosa is moist with out lesions. LUNGS: Decent air entry. There is no prolonged expiratory phase present. HEART: Normal rate, regular. ABDOMEN: Soft, nontender, and nondistended. Bowel sounds are positive. MUSCULOSKELETAL: No cyanosis or clubbing. No pitting in the bilateral lower extremities. NEUROLOGIC: Grossly nonfocal. LABORATORY DATA: WBC 5.8, hemoglobin 7.5, and down trending. Platelets 122,000. Basic metabolic pr ofile is completely unremarkable. Bicarbonate is returning to the normal range. IMAGING: Echocardiogram demonstrates 60%-65% ejection fraction, normal right ventricular size and fu nction. Left atrium is normal. He is back into a sinus rhythm. ASSESSMENT: 1. Delirium tremens. 2. Alcohol abuse, heavy. 3. Polysubstance drug abuse. 4. Atrial fibrillation with rapid ventricular response, status post cardioversion and returned to si nus rhythm. 5. Dehydration, resolved. 6. Colitis. PLAN: We will look for signs of bleeding. We will repeat a hemoglobin tomorrow morning. The patien t has some chest wall discomfort on the left. I did not see any obvious rib fracture on the CT of th e abdomen and pelvis. A left-sided rib series will be obtained. In the meantime, Lidoderm patch davi l be placed. We will work on mobilizing the patient today and get physical therapy involved. He is stable for transition to the telemetry unit.
[2017-10-12] MEDS: Lidocaine 5% Patch TD SCH (10:43)
--- NOTE | 2017-10-12 11:49 | PQF ---
CLINICAL DOCUMENTATION IMPROVEMENT CLARIFICATION FORM: ICD-10 Updated PLEASE DO AN ADDENDUM TO THE PROGRESS NOTE WITH ANY DOCUMENTATION UPDATES OR ADDITIONS AND CARRY THROUGH TO DC SUMMARY. THANK YOU. Date: 10/12 ATTN: DR. MIKE PARNELL / DR. Lencho QUEZADA Please exercise your independent, professional judgment in responding to the clarification form. Clinical indicators are provided on the bottom of this form for your review. Please check appropriate box(s): [ x ] Protein Calorie Malnutrition: [ ] Mild [x ] Moderate [ ] Severe [ ] Other Malnutrition (please specify) __ [ ] Underweight without malnutrition [ ] Cachexia [ ] Other diagnosis [ ] Unable to determine CLINICAL INDICATORS - SIGNS / SYMPTOMS / LABS BMI: 16.0 ATTENDING PHYSICIAN H&P DOCUMENTATION 10/10: HX OF PRESENT ILLNESS: ...62-YEAR- OLD MALE W/ 60 LB WEIGHT LOSS IN THE LAST 3-4 MONTHS PER DAUGHTER. 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 ASSESSMENT 10/11: PATIENT TRIGGERED FOR WEIGHT LOSS, LOW BMI & DECREASED PO INTAKE; MILD TEMPORAL WASTING OBSERVED; 21% WEIGHT CHANGE IN 3 MONTHS RISK FACTORS: WEIGHT LOSS ALCOHOL ABUSE DELIRIUM TREMENS ALCOHOL INDUCED DEMENTIA TOBACCO ABUSE TREATMENT: NUTRITION ASSESSMENT NUTRITIONAL SUPPLEMENT (GLUCERNA TID W/MEALS) Moderate Malnutrition (in acute illness) Energy Intake: <75% of estimated energy requirement for > 7 days Weight Loss: 1-2%/1 week; 5%/ 1 month; 7.5%/3 months Other: mild body fat loss; mild muscle mass loss; mild fluid accumulation; Severe Malnutrition (in acute illness) Energy Intake: < 50% of estimated energy requirement for > 5 days Weight Loss: >1-2%/1 week; >5%/1 month; >7.5%/3 months Other: moderate body fat loss; moderate muscle mass loss; moderate- severe fluid accumulation; 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 Elham (This form is maintained as a part of the permanent medical record) 2015 [employer]. All Rights Reserved Elham Garcia RN, BSN [email or web address] Office: [phone] [facility]
--- NOTE | 2017-10-12 12:29 | OP ---
DATE OF PROCEDURE: 10/11/2017 ELECTROPHYSIOLOGY STUDY AND RADIOFREQUENCY ABLATION REPORT REFERRING PHYSICIAN: Florentin Jha M.D. REASON FOR PROCEDURE: Mr. Cao is a 62-year-old male with prior history of recurrent atrial flutte r with a remote history of bypass surgery and SUKHJINDER demonstrated occluded left atrial appendage with a surgical closure. Normal LVEF. Here for evaluation of his atrial flutter, which appears to be typical on EKG morphology and possible ablation. DESCRIPTION OF PROCEDURE: The patient received deep sedation by Anesthesia specialist. After preppe d, draped and anesthetizing a right femoral venous area on the ultrasound guidance, right femoral vei n was accessed x2 and two 8 [place] short sheath was introduced. An 8 [place] Decapolar catheter was a dvanced to the CS and RV and right atrium and His bundle position, pacing, mapping and recording was performed in each location. From the CS, overdrive pacing of the atrial flutter was attempted demons trating shortest PPI by the CS suggestive of right atrial flutter in origin. Following that, a Therm oCool SF ST catheter was then advanced to the right atrium with 3D mapping of the right atrium was ob tained and also his was demarcated. Following that, complete cavotricuspid isthmus block was d emonstrated by post-pacing to being longest at the ablation line over 150 milliseconds. Following th at, basic EP study was performed revealing baseline cycle length 54 milliseconds, UT 103, HV 56, AH 1 40 milliseconds, QRS 63, QT 223 milliseconds. Sinus node recovery time is 1042. Corrected sinus nod e recovery time was 351. The AV Wenckebach was 460 milliseconds. The ERP was 400 milliseconds noted . Concentric retrograde VA conduction was seen. No dual AV luis physiology was noted. Burst atrial pacing revealed no inducible atrial flutter post-ablation. The cardiac silhouette did not change throughout the procedure. On dopamine, retesting of the cavotricuspid isthmus line was performed demonstrating no recurrent con duction through the cavotricuspid isthmus or induction of the atrial flutter was achievable. CONCLUSION: 1. Typical atrial flutter depending on the cavotricuspid isthmus at baseline. 2. Cavotricuspid isthmus ablation, eliminate atrial flutter, inducibility and also achieves complete cavotricuspid isthmus block. 3. Normal sinus and AV luis function. 4. Normal HV parameters are seen. PLAN: At this point, stop amiodarone and also discontinue the anticoagulation, hence the demonstrati on of left appendage surgical closure without a leak demonstrated on SUKHJINDER.
[2017-10-12] MEDS: traMADol HCl 50 MG TAB PO PRN (12:54)
[2017-10-12 14:50] LABS: Hemoglobin 8.2 g/dL (14.0-18.0)
--- NOTE | 2017-10-12 14:59 | CT ---
CT HEAAD WITHOUT CONTRAST: Date: 10/12/17 COMPARISON: None. HISTORY: Evaluate for stroke, atrial fibrillation. FINDINGS: There is extensive periventricular deep and subcortical white matter hypodensity, evidence of small v essel disease. The imaged paranasal sinuses/mastoid air cells are well aerated. There is no displaced calvarial fracture. There is no intracranial hemorrhage, midline shift, or mass effect. IMPRESSION: Extensive white matter hypodensity suggests small vessel disease. No intracranial hemorrhage is seen. If there is clinical concern for an acute infarction, brain MRI advised. POS: [facility]O
[2017-10-12] MEDS: Acetaminophen 325 MG TAB PO PRN ×2 (16:44→22:14)
[2017-10-12] MEDS: Lovastatin 20 MG TAB PO SCH (16:46)
--- NOTE | 2017-10-12 17:38 | PDOC.PN ---
- Subjective Encounter Start Date: 10/12/17 Encounter Start Time: 17:37 CC; dyspnea sub: pt denies dyspnea, c/o some rt neck and shoulder pain for past several months - Objective Resuscitation Status: Resuscitation Status FULL:Full Resuscitation Vital Signs & Weight: Vital Signs (12 hours) Temp Pulse Pulse Pulse Resp BP BP 10/12/17 16:00 98.6 F 10/12/17 12:00 98.7 F 10/12/17 11:03 97 107 H 122/68 10/12/17 09:28 94 97/54 L 10/12/17 08:58 100 96 141/59 H 10/12/17 07:04 98.5 F 82 22 H 10/12/17 07:00 98.5 F BP Pulse Ox Pulse Ox Pulse Ox 10/12/17 16:00 10/12/17 12:00 10/12/17 11:03 152/60 H 10/12/17 09:28 10/12/17 08:58 117/68 93 L 99 10/12/17 07:04 98 10/12/17 07:00 Weight Admit Weight 118 lb Weight 144 lb 13.499 oz Most Recent Monitor Data Heart Rate from ECG 112 NIBP 116/58 NIBP BP-Mean 81 Respiration from ECG 23 SpO2 100 I&O: 10/11/17 10/12/17 10/13/17 06:59 06:59 06:59 Intake Total 773 4016 480 Output Total 755 2360 380 Balance 18 1656 100 Result Diagrams: 10/12/17 14:42 10/12/17 05:00 Dx/Plan - Plan Physical Examination Constitutional: NAD HEENT: moist MMs Neck: no JVD Respiratory: no wheezing, no rales, no rhonchi Cardiovascular: no significant murmur, irregular s1 s2 tachy, no gallop Gastrointestinal: soft Musculoskeletal: no edema Neurological: non-focal Psychiatric: normal affect, A&O x 3 Skin: no rash Dx/Plan - Plan PT IS 62 YRS OLD MALE 1. Afib RVR 2. Alcohol abuse 3. HTN 4. HPL 5. DM type 2 6. Acute enteritis Plan: 1. Appreciate cardio input. S/P ablation. hr stable at present 2. Continue prn ativan and folic acid. Mental status stable at present. Ct head no evidence of bleeding 3. Continue statin 4. monitor blood sugars closely. Will add insulin sliding scale. 5. Continue cipro and flagyl 6. on lovenox bid. no OAC percardio due to noncomplaince and risk of falls. case d/w pt & RN
[2017-10-12] MEDS: Lidocaine Patch Removal 1 EACH TOP SCH (21:58)
[2017-10-12] MEDS: Montelukast Sodium 10 mg Tablet PO SCH (22:03)
[2017-10-13] MEDS: Levothyroxine Sodium 75 MCG TAB PO SCH (05:07)
[2017-10-13] MEDS: Aspirin 325 MG TAB PO SCH (09:21)
[2017-10-13] MEDS: Bupropion 100 MG SR TAB PO SCH ×2 (09:22→21:45)
[2017-10-13] MEDS: metroNIDAZOLE 500 MG TAB PO SCH ×3 (09:22→21:46)
[2017-10-13] MEDS: Ciprofloxacin 500 MG TAB PO SCH ×2 (09:22→21:46)
[2017-10-13] MEDS: Multivit, Therapeutic 1 TAB PO SCH (09:22)
[2017-10-13] MEDS: Primidone 50 MG TAB PO SCH ×2 (09:22→21:45)
[2017-10-13] MEDS: Amiodarone 200 MG TAB PO SCH ×2 (09:22→21:46)
[2017-10-13] MEDS: Lidocaine 5% Patch TD SCH (09:23)
[2017-10-13] MEDS: Metoprolol Tartrate 25 MG TAB PO SCH ×2 (09:23→21:46)
[2017-10-13] MEDS: Enoxaparin Sodium 60 MG/0.6 ML SYRINGE SC SCH (09:23)
[2017-10-13] MEDS: Amlodipine 5 MG TAB PO SCH (09:23)
[2017-10-13] MEDS: traMADol HCl 50 MG TAB PO PRN ×3 (09:32→22:34)
--- NOTE | 2017-10-13 10:30 | RAD ---
THREE VIEWS LEFT RIBS: Date: 10-13-17 Comparison: None. History: Left chest wall pain. FINDINGS: There are midline sternotomy wires and mediastinal clips. There is atherosclerotic calcification of t he aortic arch. Three views of the left ribs demonstrate no displaced left sided rib fracture. IMPRESSION: No evidence of left sided rib fracture. If symptoms persist, follow up CT advised. POS: CAPO
[2017-10-13] MEDS: Acetaminophen 325 MG TAB PO PRN (11:38)
--- NOTE | 2017-10-13 12:28 | PDOC.PN ---
- Subjective Encounter Start Date: 10/13/17 Encounter Start Time: 08:25 Subjective: c/o left lower rib cage pain -: no palp or sob, has gen aches and pain -: is amb in room per patient, had 2 semisolid stools from yest - Objective Resuscitation Status: Resuscitation Status FULL:Full Resuscitation MAR Reviewed: Yes Vital Signs & Weight: Vital Signs (12 hours) Temp Pulse Resp BP Pulse Ox 10/13/17 09:20 97.4 F L 91 16 141/65 H 97 10/13/17 04:00 97.9 F 89 20 136/67 97 Weight Admit Weight 118 lb Weight 148 lb 3 oz Most Recent Monitor Data Heart Rate from ECG 97 NIBP 123/65 NIBP BP-Mean 77 Respiration from ECG 15 SpO2 97 I&O: 10/12/17 10/13/17 10/14/17 06:59 06:59 06:59 Intake Total 4016 1680 Output Total 2360 755 Balance 1656 925 Result Diagrams: 10/13/17 04:38 10/12/17 05:00 Phys Exam - Physical Examination HEENT: PERRLA, moist MMs Neck: no JVD, supple Respiratory: no wheezing, no rales Cardiovascular: RRR, no significant murmur Gastrointestinal: soft, non-tender, positive bowel sounds Musculoskeletal: no edema, pulses present Neurological: non-focal, moves all 4 limbs Psychiatric: A&O x 3 Dx/Plan (1) Atrial flutter Code(s): I48.92 - UNSPECIFIED ATRIAL FLUTTER Status: Resolved Qualifiers: Atrial flutter type: typical Qualified Code(s): I48.3 - Typical atrial flutter Comment: s/p ablation 10/11/2017 (2) Enteritis Code(s): K52.9 - NONINFECTIVE GASTROENTERITIS AND COLITIS, UNSPECIFIED Status : Acute (3) Moderate protein malnutrition Code(s): E44.0 - MODERATE PROTEIN-CALORIE MALNUTRITION Status: Chronic (4) FTT (failure to thrive) in adult Status: Chronic (5) Alcohol abuse Code(s): F10.10 - ALCOHOL ABUSE, UNCOMPLICATED Status: Chronic (6) Chronic anemia Code(s): D64.9 - ANEMIA, UNSPECIFIED Status: Chronic (7) CAD (coronary artery disease) Code(s): I25.10 - ATHSCL HEART DISEASE OF [place] CORONARY ARTERY W/O ANG PCTRS Status: Chronic Qualifiers: Coronary Disease-Associated Artery/Lesion type: bypass graft [place] vs. transplanted heart: [place] heart Associated angina: without angina Qualified Code(s): I25.810 - Atherosclerosis of coronary artery bypass graft(s) without angina pectoris (8) HTN (hypertension) Code(s): I10 - ESSENTIAL (PRIMARY) HYPERTENSION Status: Chronic Qualifiers: Hypertension type: essential hypertension Qualified Code(s): I10 - Essential (primary) hypertension (9) Dyslipidemia Code(s): E78.5 - HYPERLIPIDEMIA, UNSPECIFIED Status: Chronic (10) Afib Code(s): I48.91 - UNSPECIFIED ATRIAL FIBRILLATION Status: Chronic Qualifiers: Atrial fibrillation type: chronic Qualified Code(s): I48.2 - Chronic atrial fibrillation - Plan is on amiodarone -: cipro and flagyl for enteritis, is resolving -: dc plan in am if stable -: rib xray shows no fracture -: oral iron, encourage increase protein intake * . Review of Systems - Medications/Allergies Allergies/Adverse Reactions: Allergies Allergy/AdvReac Type Severity Reaction Status Date / Time clonazepam [From Klonopin] Allergy Verified 10/10/17 07:58 codeine Allergy Verified 10/10/17 07:58 Penicillins Allergy Verified 10/10/17 07:58 protamine Allergy Verified 10/10/17 07:58 Medications: Current Medications Acetaminophen (Tylenol) 650 mg PO Q4H PRN PRN Reason: Mild Pain 1-3 Last Admin: 10/13/17 11:38 Dose: 650 mg Al Hydroxide/Mg Hydroxide (Maalox) 15 ml PO Q4H PRN PRN Reason: Heartburn or Indigestion Albuterol Sulfate (Proventil Hfa) 2 puff INH Q6HR PRN PRN Reason: SOB &/or Wheezing Amiodarone HCl (Cordarone) 400 mg PO BID [facility] Last Admin: 10/13/17 09:22 Dose: 400 mg Amlodipine Besylate (Norvasc) 2.5 mg PO DAILY [facility] Last Admin: 10/13/17 09:23 Dose: 2.5 mg Aspirin (Aspirin) 325 mg PO DAILY [facility] Last Admin: 10/13/17 09:21 Dose: 325 mg Bisacodyl (Dulcolax) 5 mg PO DAILYPRN PRN PRN Reason: CONSTIAPT Bisacodyl (Dulcolax) 10 mg [place] DAILYPRN PRN PRN Reason: Constipation Bupropion HCl (Wellbutrin Sr) 200 mg PO BID [facility] Last Admin: 10/13/17 09:22 Dose: 200 mg Ciprofloxacin (Cipro) 500 mg PO BID [facility] Last Admin: 10/13/17 09:22 Dose: 500 mg Dextrose/Water (Dextrose 50%) 25 gm SLOW IVP PRN PRN PRN Reason: Hypoglycemia Diphenhydramine HCl (Benadryl) 25 mg PO Q6H PRN PRN Reason: Itching Last Admin: 10/13/17 03:01 Dose: 25 mg Enoxaparin Sodium (Lovenox) 50 mg SC 899,2099 [facility] Last Admin: 10/13/17 09:23 Dose: 50 mg Glucagon (Glucagon) 1 mg IM PRN PRN PRN Reason: Hypoglycemia Dextrose/Water (D5w) 1,000 mls @ 0 mls/hr IV .Q0M PRN; As Directed PRN Reason: Hypoglycemia Insulin Human Lispro (Humalog) 0 units SC .MODERATE SLIDING SC PRN PRN Reason: Moderate Correctional Scale Insulin Human Lispro (Humalog) 0 units SC .BEDTIME SLIDING SC PRN PRN Reason: Bedtime Correctional Scale Levothyroxine Sodium (Synthroid) 75 mcg PO 0600 [facility] Last Admin: 10/13/17 05:07 Dose: 75 mcg Lidocaine (Lidoderm 5% Patch) 1 patch TD DAILY [facility] Last Admin: 10/13/17 09:23 Dose: 1 patch Lorazepam (Ativan) 2 mg SLOW IVP Q15MIN PRN PRN Reason: Anxiety/Agitation Lovastatin (Mevacor) 20 mg PO QPM-WM [facility] Last Admin: 10/12/17 16:46 Dose: 20 mg Metoprolol Tartrate (Lopressor) 25 mg PO BID [facility] Last Admin: 10/13/17 09:23 Dose: 25 mg Metronidazole (Flagyl) 500 mg PO TID [facility] Last Admin: 10/13/17 09:22 Dose: 500 mg Miscellaneous Medication (Lidocaine Patch Removal) 1 each TOP 2099 [facility] Last Admin: 10/12/17 21:58 Dose: Not Given Montelukast Sodium (Singulair) 10 mg PO HS [facility] Last Admin: 10/12/17 22:03 Dose: 10 mg Multivitamins (Theragran) 1 tab PO DAILY [facility] Last Admin: 10/13/17 09:22 Dose: 1 tab Nitroglycerin (Nitrostat) 0.4 mg SL Q5MIN PRN PRN Reason: Chest Pain Ondansetron HCl (Zofran) 4 mg IVP Q6H PRN PRN Reason: Nausea/Vomiting Primidone (Mysoline) 50 mg PO BID [facility] Last Admin: 10/13/17 09:22 Dose: 50 mg Silver Sulfadiazine (Silvadene) 0 gm TOP Q12H PRN PRN Reason: Rash/Topical Irritation Sodium Chloride (Flush - Normal Saline) 10 ml IVF Q12HR [facility] Last Admin: 10/13/17 09:24 Dose: 10 ml Sodium Chloride (Flush - Normal Saline) 10 ml IVF PRN PRN PRN Reason: Saline Flush Temazepam (Restoril) 15 mg PO HSPRN PRN PRN Reason: Insomnia Last Admin: 10/12/17 22:14 Dose: 15 mg Tramadol HCl (Ultram) 50 mg PO Q4H PRN PRN Reason: FOR MODERATE PAIN 4-6 Last Admin: 10/13/17 09:32 Dose: 50 mg
[2017-10-13 13:16] LABS: INR-International Normal Ratio 1.7; Prothrombin Time 20.3 SEC (12.0-14.7)
--- NOTE | 2017-10-13 15:42 | PRG ---
DATE OF SERVICE: 10/13/2017 SUBJECTIVE: I am seeing Mr. Cao at our [place] telemetry floor as electrophysiology follow up. He seems to be doing well on second day post-ablation. No recurrent arrhythmias are noted. OBJECTIVE: VITAL SIGNS: Blood pressure is 120/64, heart rate 76, respiration is 18, temperature 98.2 degrees Fa hrenheit. GENERAL: Alert and oriented man, in no apparent distress. NECK: Supple. Jugular veins not distended. CHEST: Coarse without crackles. CARDIOVASCULAR: Heart sounds are regular to rate and rhythm. No murmur or gallop. ABDOMEN: Benign. Bowel sounds positive. EXTREMITIES: edema, clubbing or cyanosis. DATABASE: Telemetry strips reveal sinus rhythm, no ST-T changes. LABORATORY DATA: Hemoglobin 8, slightly increased from baseline of 8.9. The telemetry strips reveal s sinus rhythm. ASSESSMENT AND PLAN: Mr. Cao is a 62-year-old man with a history of coronary artery disease, prio r bypass surgery and left atrial appendage ligation, which continued to be without leak on SUKHJINDER yester day. He underwent a cavotricuspid isthmus ablation for typical atrial flutter, which eliminated the flutter and re-inducibility. At this point, he is stable. Routine follow up is planned. His hemogl obin decreased from baseline, mild decrease post-procedure but now trending up. No other issues are noted. His ETOH withdrawal symptoms are also diminishing. Again, we will see him back as an outpati ent. For now off anticoagulation hence successful left appendage closure, again proven by SUKHJINDER.
--- NOTE | 2017-10-13 16:44 | PRG ---
DATE OF SERVICE: 10/13/2017 SERVICE: Pulmonary Medicine. INTERVAL HISTORY: The patient is doing outstanding from a respiratory standpoint. He denies any fev ers, chills, nausea, vomiting or chest discomfort. He is breathing comfortably. Otherwise, there we re no overnight events. He went down for an x-ray this morning to look at his left chest wall. PHYSICAL EXAMINATION: VITAL SIGNS: Afebrile, pulse 76, blood pressure 132/61, respirations 18 and saturation 97% on room a ir. GENERAL: The patient is awake and alert, in no apparent distress. LUNGS: Decent air entry. There is no prolonged expiratory phase, wheezing, rhonchi or crackles. HEART: Normal rate and regular. ABDOMEN: Soft, nontender and nondistended. Bowel sounds are positive. MUSCULOSKELETAL: No cyanosis or clubbing. There is no pitting in the bilateral lower extremities. NEUROLOGIC: Grossly nonfocal. LABORATORY DATA: Hemoglobin 8.0. IMAGING DATA: 1. Rib x-ray demonstrates no evidence of rib fracture. 2. CT of the brain demonstrates no acute intracranial abnormality. ASSESSMENT: 1. Delirium tremens, resolving. 2. Heavy alcohol abuse. 3. Polysubstance drug abuse. 4. Atrial fibrillation with rapid ventricular response, status post cardioversion and returned to si nus rhythm. 5. Colitis. PLAN: Pulmonary will continue to follow intermittently during this hospital stay. If he gets into t rouble over the weekend, please call Dr. Castillo. Otherwise, I will see him on Monday. Lidoderm pat ch is going to be discontinued as this has been ineffective controlling his discomfort.
[2017-10-13] MEDS: Lovastatin 20 MG TAB PO SCH (16:58)
[2017-10-13] MEDS ORDERED: Warfarin Sodium 5 MG TAB PO SCH (17:00)
[2017-10-13] MEDS: Montelukast Sodium 10 mg Tablet PO SCH (21:46)
[2017-10-13] MEDS ORDERED: traZODone HCl 50 MG TAB PO SCH (22:00)
[2017-10-13] MEDS ORDERED: Fentanyl 100 MCG/2 ML VIAL SLOW IVP SCH (22:00)
[2017-10-13] MEDS: Lidocaine Patch Removal 1 EACH TOP SCH (22:09)
[2017-10-14] MEDS: Levothyroxine Sodium 75 MCG TAB PO SCH (05:25)
[2017-10-14] MEDS: traMADol HCl 50 MG TAB PO PRN (05:28)
[2017-10-14 06:24] LABS: INR-International Normal Ratio 1.5
[2017-10-14] MEDS ORDERED: Ferrous Sulfate 325 MG TAB PO SCH (08:00)
[2017-10-14] MEDS: Aspirin 325 MG TAB PO SCH (08:32)
[2017-10-14] MEDS: Primidone 50 MG TAB PO SCH (08:32)
[2017-10-14] MEDS: Bupropion 100 MG SR TAB PO SCH (08:32)
[2017-10-14] MEDS: Metoprolol Tartrate 25 MG TAB PO SCH ×2 (08:32→19:23)
[2017-10-14] MEDS: Amiodarone 200 MG TAB PO SCH ×2 (08:32→19:23)
[2017-10-14] MEDS: Ciprofloxacin 500 MG TAB PO SCH (08:32)
[2017-10-14] MEDS: metroNIDAZOLE 500 MG TAB PO SCH ×2 (08:32→15:10)
[2017-10-14] MEDS: Multivit, Therapeutic 1 TAB PO SCH (08:33)
[2017-10-14] MEDS: Lidocaine 5% Patch TD SCH (08:33)
[2017-10-14] MEDS: Amlodipine 5 MG TAB PO SCH (08:33)
--- NOTE | 2017-10-14 13:59 | PDOC.PN ---
- Subjective Encounter Start Date: 10/14/17 Encounter Start Time: 09:30 Subjective: feels good, wants to go home -: no palp, is amb in room and hallway - Objective Resuscitation Status: Resuscitation Status FULL:Full Resuscitation MAR Reviewed: Yes Vital Signs & Weight: Vital Signs (12 hours) Temp Pulse Pulse Resp BP BP BP 10/14/17 11:30 97.6 F 73 12 130/66 10/14/17 10:10 76 143/76 H 10/14/17 08:33 79 10/14/17 08:30 97.7 F 85 16 123/60 10/14/17 04:00 98.8 F 79 16 129/66 Pulse Ox Pulse Ox 10/14/17 11:30 94 L 10/14/17 10:10 98 10/14/17 08:33 10/14/17 08:30 97 10/14/17 04:00 97 Weight Admit Weight 118 lb Weight 148 lb 2 oz Most Recent Monitor Data Heart Rate from ECG 97 NIBP 123/65 NIBP BP-Mean 77 Respiration from ECG 15 SpO2 97 I&O: 10/13/17 10/14/17 10/15/17 06:59 06:59 06:59 Intake Total 1680 1680 Output Total 755 675 Balance 925 1005 Result Diagrams: 10/13/17 04:38 10/12/17 05:00 Phys Exam - Physical Examination HEENT: PERRLA, moist MMs Neck: no JVD, supple Respiratory: no wheezing, no rales rhonchi+ Cardiovascular: RRR, no significant murmur Gastrointestinal: soft, non-tender, positive bowel sounds Musculoskeletal: no edema, pulses present Neurological: non-focal, moves all 4 limbs Psychiatric: normal affect, A&O x 3 Dx/Plan (1) Atrial flutter Code(s): I48.92 - UNSPECIFIED ATRIAL FLUTTER Status: Resolved Qualifiers: Atrial flutter type: typical Qualified Code(s): I48.3 - Typical atrial flutter Comment: s/p ablation 10/11/2017 (2) Enteritis Code(s): K52.9 - NONINFECTIVE GASTROENTERITIS AND COLITIS, UNSPECIFIED Status : Resolved (3) Moderate protein malnutrition Code(s): E44.0 - MODERATE PROTEIN-CALORIE MALNUTRITION Status: Chronic (4) FTT (failure to thrive) in adult Status: Chronic (5) Alcohol abuse Code(s): F10.10 - ALCOHOL ABUSE, UNCOMPLICATED Status: Chronic (6) Chronic anemia Code(s): D64.9 - ANEMIA, UNSPECIFIED Status: Chronic (7) CAD (coronary artery disease) Code(s): I25.10 - ATHSCL HEART DISEASE OF [place] CORONARY ARTERY W/O ANG PCTRS Status: Chronic Qualifiers: Coronary Disease-Associated Artery/Lesion type: bypass graft [place] vs. transplanted heart: [place] heart Associated angina: without angina Qualified Code(s): I25.810 - Atherosclerosis of coronary artery bypass graft(s) without angina pectoris (8) HTN (hypertension) Code(s): I10 - ESSENTIAL (PRIMARY) HYPERTENSION Status: Chronic Qualifiers: Hypertension type: essential hypertension Qualified Code(s): I10 - Essential (primary) hypertension (9) Dyslipidemia Code(s): E78.5 - HYPERLIPIDEMIA, UNSPECIFIED Status: Chronic (10) Afib Code(s): I48.91 - UNSPECIFIED ATRIAL FIBRILLATION Status: Chronic Qualifiers: Atrial fibrillation type: chronic Qualified Code(s): I48.2 - Chronic atrial fibrillation - Plan hemostable -: dc pt home -: amiodarone 400mg bidx7 days then 200mg daily thereafter -: above was d/w -: d/w pt and family at bedside, no alc usage * .
[2017-10-14 15:42] VITALS: BP 136/69; TEMP 97.7
--- NOTE | 2017-10-14 16:39 | DIS ---
DATE OF ADMISSION: 10/10/2017 DATE OF DISCHARGE: 10/14/2017 DISCHARGE DISPOSITION: To home. PRIMARY DISCHARGE DIAGNOSES: Atrial flutter, status post ablation done on 10/11; gastroenteritis, resolved; moderate protein malnutrition; failure to thrive with history of alcohol abuse; chronic anemia; coronary artery disease; hypertension; dyslipidemia; chronic atrial fibrillation. PROCEDURES DONE DURING HOSPITALIZATION: Echo with 2D Doppler showed an EF of 50 %-55%. Transesophageal echo showed no thrombus in the cardiac chambers. The patient has left atrial appendage, which is ligated, typical atrial flutter with cavotricuspid isthmus ablation done on 10/11/[address] Paul Ochoa, abdominal and pelvic CAT scan done on the day of admission showed findings of enteritis including terminal ileum and colitis. H&H was 8 and 25. PT and INR are 18 and 1.5. Discharge BUN and creatinine is 7 and 0.6. TSH was 6.15, albumin 3.3. Troponin x2 is negative. Urine drug screen was positive for opiates, barbiturates, benzodiazepines, and cannabinoids. DISCHARGE MEDICATIONS: Multaq 400 mg p.o. twice daily for 1 week, then 200 mg p.o. daily thereafter, albuterol nebulizer q.8 hours p.r.n., Norvasc 2.5 mg p.o. daily, aspirin 325 mg p.o. daily, bupropion 200 mg p.o. twice daily extended release, ferrous sulfate 325 mg p.o. twice daily, levothyroxine 75 mcg p.o. daily, lovastatin 20 mg p.o. daily, metoprolol 25 mg twice daily, Singulair 10 mg p.o. at bedtime, multivitamin 1 tab once daily, omeprazole 20 mg daily, Primidone 50 mg p.o. twice daily, ropinirole 1 mg p.o. at bedtime, Spiriva inhaler 18 mcg daily, trazodone 100 mg p.o. at bedtime. ALLERGIES: Allergic to CLONAZEPAM, CODEINE, PENICILLIN, and PROTAMINE. DISCHARGE PLAN: Patient to follow up with primary care physician in one week and Dr. Paul Ochoa as advised. BRIEF COURSE DURING HOSPITALIZATION: Patient initially got admitted with complaints of palpitations and generalized weakness. He was found to be in atrial fibrillation/flutter with RVR. The patient was essentially placed on Lovenox q.12 hours and Cardizem drip. He has had consultation with Dr. Jha for Cardiology and Dr. Paul Ochoa for Electrophysiology. The patient has had transesophageal echo and transthoracic echo, both done, which has not revealed any intracardiac thrombus. Subsequently, had ablation done for his atrial flutter. He had mild alcohol withdrawal during his stay. Prior to discharge, he is ambulating and eating well. He was strongly counseled against any alcohol use. No anticoagulants were given on discharge due to patient's risk of falls with prior history of alcohol abuse. He has maintained sinus rhythm all through his stay post-ablation. He will be shortly discharged home as Cardiology has cleared him for discharge. Please see a [id number] documentation on [facility] for the day of discharge. Please note he has large flat warts over perianal area and will need outpt surgical consultation via PCP when he is more stable and gained weight. NAV
[2017-10-14] MEDS: Lovastatin 20 MG TAB PO SCH (17:37)
--- NOTE | 2017-11-08 15:05 | EKG ---
Test Reason : AFIB RVR DX Blood Pressure : / mmHG Vent. Rate : 109 BPM Atrial Rate : 109 BPM P-R Int : 000 ms QRS Dur : 086 ms QT Int : 366 ms P-R-T Axes : 000 039 218 degrees QTc Int : 492 ms Atrial fibrillation with rapid ventricular response Abnormal ECG Confirmed by LINDA MONTANA ([id number]), news copy editor SINDY HO ([id number]) on 11/08/2017 3:05:04 PM Referred By: CARLA Confirmed By:LINDA MONTANA
== END 2017-10-14 19:29 | disposition home or self-care (01) | DRG 274 ==
LOC: ERS 00:12 → ERHOLD 01:54 → CCU 10:41 → 2NO 10-12 20:04
PROVIDERS: ADMIT Internal Medicine; ATTEND Internal Medicine
PROC: 02583ZZ Destruction of Conduction Mechanism, Percutaneous Approach (ICD-10-PCS; principal; 2017-10-11)
PROC: B24BZZ4 Ultrasonography of Heart with Aorta, Transesophageal (ICD-10-PCS; 2017-10-11)
DX: I48.2 Chronic atrial fibrillation (principal); F10.221 Alcohol dependence with intoxication delirium; F10.27 Alcohol dependence with alcohol-induced persisting dementia; E44.0 Moderate protein-calorie malnutrition; D63.8 Anemia in other chronic diseases classified elsewhere; E03.9 Hypothyroidism, unspecified; E11.9 Type 2 diabetes mellitus without complications; F10.239 Alcohol dependence with withdrawal, unspecified; I25.10 Atherosclerotic heart disease of native coronary artery without angina pectoris; E78.5 Hyperlipidemia, unspecified; F17.210 Nicotine dependence, cigarettes, uncomplicated; Z95.1 Presence of aortocoronary bypass graft; Z91.14 Patient's other noncompliance with medication regimen; K52.9 Noninfective gastroenteritis and colitis, unspecified; Z68.20 Body mass index [BMI] 20.0-20.9, adult; E86.0 Dehydration; R55 Syncope and collapse; I10 Essential (primary) hypertension
CPT/HCPCS: 36415; 70450; 74177; 76942; 80048; 80076; 80306; 81001; 83036; 84443; 84484; 85014; 85018; 85025; 85610; 93005; 93306; 93312; 93613; 93623; 93653; 96365; 96366; 96367; 96375; A4216; C1730; C1769; G8978-GP-CM; G8979-GP-CJ; G8987-GO-CJ; G8988-GO-CI; J0282; J1265; J1630; J1644; J1650; J2001; J2060; J2250; J2270; J2704; J3010; J7050; J7070

== ENCOUNTER 2017-10-22 13:29 | Inpatient (IN) | payer OTHER ==
[~2017-10-22 13:29] MED LIST: ISOVUE-370 76%-LOCM 1 ML ONE
[2017-10-22] MEDS ORDERED: Albuterol Sulfate 2.5 mg/0.5 ml Neb ONE ×2 (13:47)
[2017-10-22] MEDS ORDERED: methylPREDNISolone Sod Succ/PF 125 MG/2 ML VIAL ONE (13:51)
[2017-10-22] MEDS ORDERED: Albuterol Sulfate 2.5 mg/3 ml Neb ONE (13:56)
[2017-10-22 14:07] LABS: Base Excess-Venous 9.1 mmol/L (0 (+/- 2.5)); Bicarbonate (HCO3v) 35.2 mmol/L (1.0-85.0); CO2 Tension (PvCO2) 55.1 mmHg (41.0-51.0); Calcium, Ionized 1.03 mmol/L (1.12-1.32); Hemoglobin - Calc 10.6 g/dL (12.0-18.0); Lactate 1.84 mmol/L (0.50-2.20); Potassium 5.5 mmol/L (3.4-4.7); T. Carbon Dioxide 36.9 mmol/L (1.0-85.0); pH (Venous) 7.413 (7.35-7.45); vO2 Saturation-calc 51.8 % (94-98)
[2017-10-22 14:32] LABS: PTT 29.3 SEC (22.9-36.1)
[2017-10-22 14:36] LABS: INR-International Normal Ratio 1.1; Prothrombin Time 14.3 SEC (12.0-14.7)
[2017-10-22 14:37] LABS: Hemoglobin 9.1 g/dL (14.0-18.0); Mean Corpuscular Hemoglobin 27.6 pg (27.0-31.0); Mean Platelet Volume 10.5 fL (7.4-10.4); Platelet Count 211 thou/uL (130-400); RBC Distribution Width 18.3 % (11.5-14.5); Red Blood Cell (RBC) Count 3.29 mill/uL (4.70-6.10); White Blood Cell (WBC) Count 9.1 thou/uL (4.8-10.8)
[2017-10-22] MEDS ORDERED: ALPRAZolam 0.25 MG TAB ONE (14:45)
[2017-10-22 14:47] LABS: CKMB 1.9 ng/mL (0-6.6); Troponin I Less than 0.010 ng/mL (< 0.028)
[2017-10-22 14:59] LABS: #Basophils 0.1 thou/uL (0.0-0.2); #Lymphocytes 0.6 thou/uL (1.20-3.40); #Monocytes 0.3 thou/uL (0.11-0.59); #Neutrophils 8.1 thou/uL (1.40-6.50); %Basophils 0.6 % (0.0-1.0); %Eosinophils 0.1 % (0.0-10.0); %Lymphocytes 6.8 % (21.0-51.0); %Monocytes 3.5 % (0.0-10.0); %Neutrophils 89.1 % (42.0-75.0); Anisocytosis SLIGHT = 6-15 cells (100X) (0-5/hpf); Hypochromia SLIGHT = 6-15 cells (100X) (0-5/hpf); MDiff Complete? YES; PLT Morphology Comment Appears Adequate
[2017-10-22 15:34] LABS: ALT (SGPT) 69 U/L (8-55); AST (SGOT) 91 U/L (5-34); Albumin 3.2 g/dL (3.4-4.8); Alkaline Phosphatase 124 U/L (40-150); Anion Gap 11 mmol/L (10-20); BUN (Urea Nitrogen) 15 mg/dL (8.4-25.7); Bilirubin, Total 0.3 mg/dL (0.2-1.2); Calc. Creatinine Clearance 0 mL/min (70-130); Calcium 8.9 mg/dL (7.8-10.44); Carbon Dioxide 34 mmol/L (23-31); Chloride 97 mmol/L (98-107); Estimated GFR-MDRD Greater than 90; Globulin 2.7 g/dL (2.4-3.5); Glucose 162 mg/dL (80-115); Lipase 20 U/L (8-78); Magnesium 1.7 mg/dL (1.6-2.6); Potassium 4.5 mmol/L (3.5-5.1); Protein, Total 5.9 g/dL (5.8-8.1); Sodium 137 mmol/L (136-145)
--- NOTE | 2017-10-22 15:57 | RAD ---
CHEST ONE VIEW: History: Cough. Comparison: 10-19-17 FINDINGS: Mild increased interstitial markings in the lung bases. No pneumothorax. Cardiomediastinal silhouette and mediastinal contours are within normal limits. IMPRESSION: Mild interstitial edema. POS: [facility]
--- NOTE | 2017-10-22 17:13 | CT ---
CTA OF THE THORAX UTILIZING IV CONTRAST AND 3D REFORMATTED IMAGING: Indication: History of chest pain with shortness of breath and food intolerance for the last two days after having an ablation and being discharged from the hospital. Patient also reports nausea. Patiterry vicente is normally on oxygen at home and he is a smoker with history of asthma. Comparison: No CT comparisons of the thorax are available. Comparison is made with CT of the abdomen/ pelvis dated 10-10-17. FINDINGS: There is scattered emphysema. There are patchy areas of nodular ground glass opacities seen predomina tely in a bronchial distribution seen within the right upper lobe, left upper lobe and both lower lob es with small bilateral pleural effusions and bibasilar atelectasis. No central or segmental pulmonar y embolus is evident. There is post-surgical change of a prior CABG. There is scattered vascular calc ification of the coronary arteries and thoracic aorta. There is a 1 cm pretracheal lymph node seen on image 30 of series 2. Subcarinal lymph node is seen measuring 8 mm. No additional pathologically enl arged lymph nodes evident. Visualized upper abdomen demonstrates moderate calcification of the visualized abdominal aorta. Jejun al veins appear within normal limits. There is some density within the gallbladder which may reflect gallbladder sludge. There are calcified granuloma within the liver. IMPRESSION: 1. No central or segmental pulmonary embolus. 2. Ground glass nodular opacities seen predominately in a bronchial distribution, suspicious for a br onchiolitis of either infectious or inflammatory etiology. There is a mildly prominent pretracheal me diastinal lymph node measuring 1 cm. 3. Small bilateral pleural effusions. 4. Density within the gallbladder may reflect gallbladder sludge. No visible stones were seen on the comparison CT examination dated 10-10-17. POS: [facility]
[2017-10-22] MEDS ORDERED: Furosemide 20 MG/2 ML VIAL ONE (17:15)
[2017-10-22] MEDS ORDERED: Acetaminophen 325 MG TAB ONE (20:53)
[2017-10-22 20:58] LABS: pH, Arterial 7.39 (7.35-7.45)
[2017-10-22 20:59] LABS: Actual Bicarbonate (HCO3a) 36.1 mEq/L (22-26); Base Excess (BEa) 9.8 mEq/L (0 (+/-) 2.5); CO2 Tension 60.4 mmHg (35.0-45.0); Hematocrit-ABG 33.2 % (42.0-52.0); O2 Tension (PaO2) 51.5 mmHg (80.0-100.0)
[2017-10-22 21:00] LABS: Analyzer IN Cardio ER; Calcium, Ionized 1.2 mmol/L (1.12-1.30); Puncture Site RRA
[2017-10-22 21:31] LABS: Troponin I Less than 0.010 ng/mL (< 0.028)
[2017-10-22] MEDS ORDERED: Ondansetron HCl/PF 4 MG/2 ML Vial IVP PRN (22:00)
[2017-10-22] MEDS ORDERED: Albuterol Sulfate 2.5 mg/3 ml Neb NEB PRN (22:00)
[2017-10-22] MEDS ORDERED: Ondansetron ODT 4 MG TAB SL PRN (22:00)
[2017-10-22] MEDS ORDERED: Acetaminophen 325 MG TAB PO PRN (22:00)
[2017-10-22] MEDS ORDERED: Dextrose 50% Abboject 50 ML SYRINGE SLOW IVP PRN (22:10)
[2017-10-22] MEDS ORDERED: Dextrose 5% in Water 1,000 ML IV PRN (22:10)
[2017-10-22 23:03] VITALS: BMI 20.9
[2017-10-23 00:07] LABS: Troponin I Less than 0.010 ng/mL (< 0.028)
[2017-10-23 02:47] LABS: Amphetamine Not Detected (NotDetected); Barbiturates Screen Detected (NotDetected); Benzodiazepine Screen Detected (NotDetected); Cocaine Metabolite Screen Not Detected (NotDetected); Medtox Control Line Valid? VALID (VALID); Medtox Reader # READER 4; Methadone Not Detected (NotDetected); Methamphetamine Not Detected (NotDetected); Opiate Screen Not Detected (NotDetected); Oxycodone Screen Not Detected (NotDetected); Phencyclidine (PCP) Not Detected (NotDetected); THC/Cannabinoid Screen Detected (NotDetected); Tricyclic Screen Not Detected (NotDetected)
[2017-10-23] MEDS: Levothyroxine Sodium 75 MCG TAB PO SCH (04:56)
[2017-10-23] MEDS ORDERED: Doxycycline 100 MG in Syringe 0 ML IVPB SCH (09:00)
[2017-10-23] MEDS ORDERED: Sterile Water 10 ML ONE (11:34)
[2017-10-23] MEDS ORDERED: Acetaminophen 325 MG TAB PO SCH (13:45)
[2017-10-23] MEDS: HumaLOG 300 UNITS/3 ML VIAL SC PRN ×3 (13:54→23:47)
--- NOTE | 2017-10-23 14:54 | CON ---
DATE OF CONSULTATION: 10/23/2017 Herman Cao is a 62-year-old gentleman admitted with a cough, left-sided chest pain. His sats in the ER on room air 91%, blood pressure 130/60, pulse 72, respiration 18. He is still smoking. Lives wi th a brother apparently, according to his son is in the room. The patient has not eaten for 5 days. He has a history of previous alcohol and tobacco abuse. He has severe limitation to activity. Acco rding to the son the patient has been lying in bed now for the last several days. There is no fever or chills. His history is rather sketchy. Regarding his left-sided pain, it is possibly he could have fallen, but denies any nausea, vomiting o r diarrhea. Two days ago he had a BM. PAST MEDICAL HISTORY: Pertinent for probably dementia, cardiac arrhythmia, atrial fibrillation, diab etes, alcohol abuse, tobacco abuse, COPD, hyperlipidemia. PAST SURGICAL HISTORY: Bypass 2013, right knee surgery, appendix. TOBACCO; Tobacco at least half pack a day. ALCOHOL: Apparently quit drinking maybe 2 weeks ago or so. MEDICATIONS FROM HOME: Zofran, prednisone and albuterol, nitroglycerin, amlodipine 2.5, Singulair, R opinirole 1 mg, Primidone 50, vitamins, omeprazole 40, lovastatin 20, Symbicort, metoprolol. ALLERGIES: PENICILLIN and CODEINE. SOCIAL/FAMILY HISTORY: Presently disabled. Lives with a brother. REVIEW OF SYSTEMS: Otherwise, 10-point negative. PHYSICAL EXAMINATION: VITAL SIGNS: Sats are 90 on 3 liters, temperature 96, pulse 117, blood pressure 120/58. CHEST: Chest revealed decreased breath sounds. Expiration prolonged. There is no significant wheez ing. CARDIAC: Normal S1, S2. No gallops. ABDOMEN: Soft. No masses. LABORATORY: His toxicology reveals benzos, marijuana and barbiturates. His CT chest angio done yesterday showing ground glass opacity left lung, but no obvious infiltrates or mass was seen. White count 9000, H&H 9 and 29, platelet count was normal. His chemistry shows a normal BUN and crea tinine, pO2 51, pCO2 67.39, apparently on room air showed severe hypoxemia with respiratory acidosis. BNP 508. IMPRESSION: 1. Respiratory failure, multiple etiologies, chronic obstructive pulmonary disease exacerbation, pos sible superimposed congestive heart failure. 2. Possible pneumonia. 3. Alcohol abuse. 4. Tobacco abuse. 5. Severe deconditioning. 6. Dementia. PLAN: He was started on steroids, neb treatments, antibiotics are continued. Will notify Dr. Anaid nj who has seen him in the past. Continue PT. May need GI workup. Question whether his eating habits are due to his severe dementia. He may need care home placement. This is a consultation, 70 minutes, 50% spent in direct patient care.
--- NOTE | 2017-10-23 16:07 | ULT ---
ULTRASOUND OF SPLEEN: A limited abdominal ultrasound was performed to assess the spleen. INDICATION: Assess spleen size. FINDINGS: Maximal spleen measurement is recorded at 13.2 cm, which is upper normal. Spleen width is recorded a t 4 cm, which is within normal range. IMPRESSION: Spleen size upper normal. POS: [facility]
--- NOTE | 2017-10-23 23:28 | PDOC.PN ---
- Subjective Encounter Start Date: 10/23/17 Encounter Start Time: 13:00 Subjective: nsg notes rev, tressa ovn, no new c/o overall feels breathing is better -: son at bedside. reports poor appetite; not hungry and eating makes him -: short of breath - Objective Vital Signs & Weight: Vital Signs (12 hours) Temp Pulse Resp BP Pulse Ox 10/23/17 20:00 98.1 F 85 18 129/61 10/23/17 18:28 93 L 10/23/17 18:27 87 18 93 L 10/23/17 15:00 98.2 F 81 15 121/63 94 L 10/23/17 13:40 79 18 92 L 10/23/17 12:00 98.5 F 76 15 116/60 92 L Weight Weight 142 lb I&O: 10/22/17 10/23/17 10/24/17 06:59 06:59 06:59 Intake Total 940 Output Total 750 Balance 190 Result Diagrams: 10/22/17 14:00 10/22/17 15:04 Additional Labs: Accuchecks 10/23/17 10/23/17 10/23/17 21:06 16:50 12:23 POC Glucose 238 H 214 H 266 H 10/23/17 10/22/17 05:35 23:12 POC Glucose 179 H 218 H Phys Exam - Physical Examination Constitutional: NAD seated in hospital bed HEENT: PERRLA, sclera anicteric Respiratory: no rales, no rhonchi diminished throughout with faint end expiratory wheezing Cardiovascular: RRR, no significant murmur, no rub Gastrointestinal: soft, non-tender, positive bowel sounds Musculoskeletal: no edema, pulses present Neurological: moves all 4 limbs Psychiatric: normal affect, A&O x 3 Dx/Plan - Plan * 62M hx recent ablation p/w CC SOB * * SOB concern for COPD exacerbation * O2 supplementation * apprec pulmonary c/s * initial abx selection 2/2 desire to avoid potential QTc prolongation agents and pt having a pcn allergy * steroids with anticipated medication induced hyperglycemia, SSI hx cardiac ablation for atrial flutter * see discussion above re: abx selection hx tobacco and etoh use * patient's children have been living with him since d/c and he has not had any etoh or illicit drugs since d/c * additionally, they have been helping to administer his medications to him diet: as luis, cardiac activity: as luis, PT c/s dvt ppx Review of Systems - Medications/Allergies Allergies/Adverse Reactions: Allergies Allergy/AdvReac Type Severity Reaction Status Date / Time clonazepam [From Klonopin] Allergy Verified 10/10/17 07:58 codeine Allergy Verified 10/10/17 07:58 Penicillins Allergy Verified 10/10/17 07:58 protamine Allergy Verified 10/10/17 07:58 Medications: Current Medications Albuterol/Ipratropium (Duoneb) 3 ml NEB Q4H PRN PRN Reason: SOB &/or Wheezing Albuterol/Ipratropium (Duoneb) 3 ml NEB [id number] [facility] Last Admin: 10/24/17 12:15 Dose: 3 ml Amlodipine Besylate (Norvasc) 2.5 mg PO DAILY [facility] Aspirin (Aspirin) 325 mg PO DAILY [facility] Bupropion HCl (Wellbutrin Sr) 200 mg PO BID [facility] Dextrose/Water (Dextrose 50%) 25 gm SLOW IVP PRN PRN PRN Reason: Hypoglycemia Ferrous Sulfate (Feosol) 325 mg PO DAILY [facility] Glucagon (Glucagon) 1 mg IM PRN PRN PRN Reason: Hypoglycemia Guaifenesin (Mucinex) 600 mg PO Q12HR [facility] Heparin Sodium (Porcine) (Heparin) 5,000 units SC TID [facility] Last Admin: 10/24/17 15:59 Dose: 5,000 units Dextrose/Water (D5w) 1,000 mls @ 0 mls/hr IV .Q0M PRN; As Directed PRN Reason: Hypoglycemia Doxycycline Hyclate 100 mg/ (Sodium Chloride) 100 mls @ 100 mls/hr IVPB 1100, 2300 [facility] Last Admin: 10/24/17 11:51 Dose: 100 mls Insulin Human Lispro (Humalog) 0 units SC .MILD SLIDING SCALE PRN PRN Reason: Mild Correctional Scale Last Admin: 10/24/17 18:34 Dose: 3 unit Levothyroxine Sodium (Synthroid) 75 mcg PO 0600 [facility] Last Admin: 10/24/17 05:29 Dose: 75 mcg Methylprednisolone Sodium Succinate (Solu-Medrol) 40 mg IVP Q6HR [facility] Last Admin: 10/24/17 18:26 Dose: 40 mg Metoprolol Tartrate (Lopressor) 25 mg PO BID [facility] Montelukast Sodium (Singulair) 10 mg PO HS [facility] Nitroglycerin (Nitrostat) 0.4 mg SL Q5MIN PRN PRN Reason: Chest Pain Last Admin: 10/24/17 17:18 Dose: 0.4 mg Ondansetron HCl (Zofran Odt) 4 mg PO Q6H PRN PRN Reason: Nausea/Vomiting Pantoprazole Sodium (Protonix) 40 mg PO DAILY [facility] Primidone (Mysoline) 50 mg PO BID [facility] Ropinirole HCl (Requip) 1 mg PO HS [facility] Simvastatin (Zocor) 10 mg PO HS [facility] Sodium Chloride (Flush - Normal Saline) 10 ml IVF Q12HR [facility] Sodium Chloride (Flush - Normal Saline) 10 ml IVF PRN PRN PRN Reason: Saline Flush Tramadol HCl (Ultram) 50 mg PO Q6H PRN PRN Reason: Moderate Pain (4-6) Last Admin: 10/24/17 15:57 Dose: 50 mg Trazodone HCl (Desyrel) 100 mg PO HS [facility]
[2017-10-24] MEDS: Levothyroxine Sodium 75 MCG TAB PO SCH (05:29)
--- NOTE | 2017-10-24 10:16 | PRG ---
DATE OF SERVICE: 10/24/2017 Mr. Cao said he has been feeling better. PHYSICAL EXAMINATION: VITAL SIGNS: His sats are 92 on 3 liters, temperature 98, pulse 89, respiration rate 18. CHEST: Chest reveals decreased breath sounds without any wheezing. CARDIAC: Normal S1, S2. ABDOMEN: Soft, no mass. IMPRESSION: 1. Severe chronic obstructive pulmonary disease. 2. Severe deconditioning. 3. Tobacco abuse, ongoing. PLAN: From a pulmonary standpoint of view, continue neb treatments, steroids. Refrain from smoking. Hopefully, we can discharge home in the next several days. Taper his steroids.
[2017-10-24] MEDS: HumaLOG 300 UNITS/3 ML VIAL SC PRN ×2 (11:48→18:34)
[2017-10-24] MEDS ORDERED: Ondansetron ODT 4 MG TAB PO PRN (12:23)
--- NOTE | 2017-10-24 12:31 | PDOC.PN ---
- Subjective Encounter Start Date: 10/24/17 Encounter Start Time: 12:37 Subjective: no complaints today. Feels better. -: No acute event overnight. - Objective MAR Reviewed: Yes Vital Signs & Weight: Vital Signs (12 hours) Temp Pulse Resp BP Pulse Ox 10/24/17 12:15 86 16 91 L 10/24/17 07:34 89 18 10/24/17 04:00 98.2 F 82 20 137/72 92 L 10/24/17 00:58 93 L Weight Weight 142 lb I&O: 10/23/17 10/24/17 10/25/17 06:59 06:59 06:59 Intake Total 940 Output Total 750 Balance 190 Result Diagrams: 10/22/17 14:00 10/22/17 15:04 Additional Labs: Accuchecks 10/24/17 10/24/17 10/23/17 10:17 06:03 21:06 POC Glucose 256 H 170 H 238 H 10/23/17 10/23/17 16:50 12:23 POC Glucose 214 H 266 H Phys Exam - Physical Examination Constitutional: NAD HEENT: PERRLA, moist MMs, sclera anicteric Neck: no nodes, no JVD, supple, full ROM Respiratory: no rales, no rhonchi, wheezing present Cardiovascular: RRR, no significant murmur, no rub Gastrointestinal: soft, non-tender, no distention, positive bowel sounds Musculoskeletal: no edema, pulses present Neurological: non-focal, moves all 4 limbs Psychiatric: normal affect, A&O x 3 Dx/Plan (1) Acute respiratory failure Code(s): J96.00 - ACUTE RESPIRATORY FAILURE, UNSP W HYPOXIA OR HYPERCAPNIA Status: Acute Qualifiers: Respiratory failure complication: hypercapnia Qualified Code(s): J96.02 - Acute respiratory failure with hypercapnia Comment: Improving. Likely 2/2 COPD exacerbation and PNA. Will continue nebs and steroids. Will be tapered off. (2) COPD exacerbation Code(s): J44.1 - CHRONIC OBSTRUCTIVE PULMONARY DISEASE W (ACUTE) EXACERBATION Status: Acute Plan: As above. (3) Afib Code(s): I48.91 - UNSPECIFIED ATRIAL FIBRILLATION Status: Chronic Qualifiers: Atrial fibrillation type: chronic Qualified Code(s): I48.2 - Chronic atrial fibrillation Comment: Rate controlled. Will resume home regimen and monitor heart rate closely. Hold amiodarone for now. (4) Alcohol abuse Code(s): F10.10 - ALCOHOL ABUSE, UNCOMPLICATED Status: Chronic Comment: Counseled. (5) CAD (coronary artery disease) Code(s): I25.10 - ATHSCL HEART DISEASE OF [place] CORONARY ARTERY W/O ANG PCTRS Status: Chronic Qualifiers: Coronary Disease-Associated Artery/Lesion type: bypass graft [place] vs. transplanted heart: [place] heart Associated angina: without angina Qualified Code(s): I25.810 - Atherosclerosis of coronary artery bypass graft(s) without angina pectoris Comment: Stable. Chest pain free. Continued on home medications. (6) Dyslipidemia Code(s): E78.5 - HYPERLIPIDEMIA, UNSPECIFIED Status: Chronic Comment: On Statins (7) HTN (hypertension) Code(s): I10 - ESSENTIAL (PRIMARY) HYPERTENSION Status: Chronic Qualifiers: Hypertension type: essential hypertension Qualified Code(s): I10 - Essential (primary) hypertension Comment: Controlled and at goal. Continue current medications (8) Moderate protein malnutrition Code(s): E44.0 - MODERATE PROTEIN-CALORIE MALNUTRITION Status: Chronic Plan: Ensure adequate nutritional intake. - Plan cont current plan of care, PT/OT, social media senior associate, respiratory therapy, out of bed/ambulate, DVT proph w/heparin * . Review of Systems - Medications/Allergies Allergies/Adverse Reactions: Allergies Allergy/AdvReac Type Severity Reaction Status Date / Time clonazepam [From Klonopin] Allergy Verified 10/10/17 07:58 codeine Allergy Verified 10/10/17 07:58 Penicillins Allergy Verified 10/10/17 07:58 protamine Allergy Verified 10/10/17 07:58 Medications: Current Medications Albuterol/Ipratropium (Duoneb) 3 ml NEB Q4H PRN PRN Reason: SOB &/or Wheezing Albuterol/Ipratropium (Duoneb) 3 ml NEB [id number] [facility] Last Admin: 10/24/17 12:15 Dose: 3 ml Aspirin (Aspirin) 325 mg PO DAILY [facility] Dextrose/Water (Dextrose 50%) 25 gm SLOW IVP PRN PRN PRN Reason: Hypoglycemia Glucagon (Glucagon) 1 mg IM PRN PRN PRN Reason: Hypoglycemia Dextrose/Water (D5w) 1,000 mls @ 0 mls/hr IV .Q0M PRN; As Directed PRN Reason: Hypoglycemia Doxycycline Hyclate 100 mg/ (Sodium Chloride) 100 mls @ 100 mls/hr IVPB 1100, 2300 [facility] Last Admin: 10/24/17 11:51 Dose: 100 mls Insulin Human Lispro (Humalog) 0 units SC .MILD SLIDING SCALE PRN PRN Reason: Mild Correctional Scale Last Admin: 10/24/17 11:48 Dose: 4 unit Levothyroxine Sodium (Synthroid) 75 mcg PO 0600 [facility] Last Admin: 10/24/17 05:29 Dose: 75 mcg Methylprednisolone Sodium Succinate (Solu-Medrol) 40 mg IVP Q6HR [facility] Last Admin: 10/24/17 11:51 Dose: 40 mg Montelukast Sodium (Singulair) 10 mg PO HS [facility] Non-Formulary Medication (Amlodipine Besylate [Amlodipine Besylate]) 2.5 mg PO DAILY [facility] Non-Formulary Medication (Bupropion Hcl [Bupropion Hcl Er]) 200 mg PO BID [facility] Non-Formulary Medication (Ferrous Sulfate [Ferrous Sulfate]) 325 mg PO DAILY [facility] Non-Formulary Medication (Lovastatin [Lovastatin]) 20 mg PO QPM-WM [facility] Non-Formulary Medication (Omeprazole [Omeprazole]) 40 mg PO DAILY [facility] Non-Formulary Medication (Trazodone Hcl [Trazodone Hcl]) 100 mg PO HS [facility] Ondansetron HCl (Zofran Odt) 4 mg PO Q6H PRN PRN Reason: Nausea/Vomiting Primidone (Mysoline) 50 mg PO BID [facility] Ropinirole HCl (Requip) 1 mg PO HS [facility] Sodium Chloride (Flush - Normal Saline) 10 ml IVF Q12HR [facility] Sodium Chloride (Flush - Normal Saline) 10 ml IVF PRN PRN PRN Reason: Saline Flush
[2017-10-24] MEDS: traMADol HCl 50 MG TAB PO PRN (15:57)
[2017-10-24] MEDS: Heparin 5,000 UNITS/ML VIAL SC SCH ×2 (15:59→19:56)
[2017-10-24] MEDS ORDERED: Non-Formulary Item 1 EACH (Lovastatin [Lovastatin] 20 MG) PO SCH (17:00)
[2017-10-24] MEDS ORDERED: Nitroglycerin 0.4 MG TAB (25 Tab Bottle) SL PRN (17:03)
[2017-10-24] MEDS: guaiFENesin ER 600 MG TAB PO SCH (19:55)
[2017-10-24] MEDS: Simvastatin 5 MG TAB PO SCH (19:56)
[2017-10-24] MEDS: Montelukast Sodium 10 mg Tablet PO SCH (19:56)
[2017-10-24] MEDS: rOPINIRole HCl 1 MG TAB PO SCH (19:56)
[2017-10-24] MEDS: Metoprolol Tartrate 25 MG TAB PO SCH (20:01)
[2017-10-24] MEDS ORDERED: Non-Formulary Item 1 EACH (Trazodone Hcl [Trazodone Hcl] 100 MG) PO SCH (21:00)
[2017-10-24] MEDS ORDERED: traZODone HCl 50 MG TAB PO SCH (21:00)
[2017-10-24] MEDS ORDERED: BUPROPION HCL 200 MG PO SCH (21:00)
[2017-10-24] MEDS: traZODone HCl 50 MG TAB PO SCH (21:59)
[2017-10-24] MEDS: Primidone 50 MG TAB PO SCH (21:59)
[2017-10-24] MEDS: Bupropion 100 MG SR TAB PO SCH (22:00)
[2017-10-25] MEDS: traMADol HCl 50 MG TAB PO PRN (02:28)
[2017-10-25 04:56] LABS: #Lymphocytes 0.5 thou/uL (1.20-3.40); #Monocytes 0.5 thou/uL (0.11-0.59); #Neutrophils 9.2 thou/uL (1.40-6.50); %Basophils 0.1 % (0.0-1.0); %Lymphocytes 4.6 % (21.0-51.0); %Monocytes 4.7 % (0.0-10.0); %Neutrophils 90.6 % (42.0-75.0); Hemoglobin 7.9 g/dL (14.0-18.0); Mean Corpuscular Hemoglobin 27.5 pg (27.0-31.0); Mean Corpuscular Volume 88.9 fl (80.0-94.0); Mean Platelet Volume 9.7 fL (7.4-10.4); Platelet Count 200 thou/uL (130-400); RBC Distribution Width 17.3 % (11.5-14.5); Red Blood Cell (RBC) Count 2.87 mill/uL (4.70-6.10); White Blood Cell (WBC) Count 10.1 thou/uL (4.8-10.8)
[2017-10-25 05:01] LABS: Anion Gap 8 mmol/L (10-20); BUN (Urea Nitrogen) 14 mg/dL (8.4-25.7); Calc. Creatinine Clearance 104 mL/min (70-130); Calcium 8.8 mg/dL (7.8-10.44); Carbon Dioxide 37 mmol/L (23-31); Chloride 99 mmol/L (98-107); Estimated GFR-MDRD Greater than 90; Glucose 178 mg/dL (80-115); Potassium 4.6 mmol/L (3.5-5.1); Sodium 139 mmol/L (136-145)
[2017-10-25 05:06] LABS: ALT (SGPT) 54 U/L (8-55); AST (SGOT) 27 U/L (5-34); Albumin 2.8 g/dL (3.4-4.8); Alkaline Phosphatase 95 U/L (40-150); Bilirubin, Direct 0.2 mg/dL (0.1-0.3); Bilirubin, Total 0.5 mg/dL (0.2-1.2); Protein, Total 5.2 g/dL (5.8-8.1)
[2017-10-25] MEDS: Levothyroxine Sodium 75 MCG TAB PO SCH (06:19)
[2017-10-25] MEDS ORDERED: Albuterol Sulfate 2.5 mg/3 ml Neb NEB PRN (07:56)
--- NOTE | 2017-10-25 08:28 | HP ---
CHIEF COMPLAINT: Shortness of breath. HISTORY OF PRESENT ILLNESS: This is a 62-year-old male who was recently discharged from our facility status post atrial flutter ablation procedure who presented with progressive shortness of breath teodoro t has worsened over the last 24-48 hours. He complains of shortness of breath initially only with ex ertion, then now has progressed at rest and with exertion. Denies any fevers, chills, endorses a cou gh that is grossly nonproductive. He is not clear if he has had similar episodes before. The patient today is accompanied by his child ahsan who are with him at bedside. The patient himself is a marginal historian and tends to feel that he is doing "alright" while his family members are a bit more concerned about his overall condition. REVIEW OF SYSTEMS: As per HPI. Constitutional: No documented fevers, but the patient does endorse having had subjective fevers and intermittent subjective chills, no quantified weight loss or gain si nce his last discharge. HEENT: Denies any headaches, vision changes. Endorses intermittent lighthe adedness, dizziness with exertion. Cardiovascular: Denies any chest pain or chest pressure, left-si ded arm numbness or tingling. No episodes of diaphoresis, shortness of breath as above. Respiratory : Please see discussion above. The patient is not clear if he has had any overt known sick contacts since discharge from the hospital. Gastrointestinal: The patient endorses a decreased appetite, bu t denies any overt nausea or emesis. The patient states he last had a bowel movement yesterday and h e denies any issues with diarrhea or constipation. Genitourinary: Denies any dysuria or changes in urinary quality color or quantity. Musculoskeletal: Denies any new myalgias or arthralgias. Remainder of the review of systems is otherwise negative. PAST MEDICAL HISTORY: As per above. 1. Coronary artery disease status post CABG x3. 2. Atrial flutter, status post ablation in 09/2017. 3. Hypertension. 4. Hyperlipidemia. 5. Chronic tobacco. 6. Binge drinking. HOME MEDICATIONS: The patient has listed the following list, ondansetron (Zofran) 4 mg p.o. q.6 hour s p.r.n., prednisone 10 mg p.o. q.a.m., albuterol 3 mL nebs t.i.d., amiodarone 400 mg p.o. b.i.d., Ni trostat 0.4 mg sublingual every 5 minutes p.r.n., ferrous sulfate 325 mg p.o. daily, amlodipine besyl ate 2.5 mg p.o. daily, trazodone 100 mg p.o. at bedtime, bupropion 200 mg p.o. b.i.d., albuterol sulf ate 2 puffs inhalation q.6 hour p.r.n., montelukast sodium 10 mg p.o. at bedtime, levothyroxine 75 mc g p.o. daily, inhalation one inhalation b.i.d., ropinirole 1 mg p.o. at bedtime, primidone 50 m g p.o. b.i.d., multivitamin 1 tab daily, aspirin 325 mg p.o. daily, omeprazole 40 mg p.o. daily, lova statin 20 mg p.o. q.p.m., metoprolol tartrate 25 mg p.o. b.i.d., budesonide/formoterol 2 puffs inhala tion b.i.d., albuterol sulfate 2 puffs inhalation q.4 hours p.r.n. ALLERGIES: CLONAZEPAM, CODEINE, PENICILLINS, and Protamine without known reaction to any of those. FAMILY HISTORY: Significant for diabetes, blood pressure, and stroke in family members. SOCIAL HISTORY: The patient has been a 2 pack a day smoker for the last 50 years. Denies any illici t drug use. Endorses intermittent alcohol use, but has not had any alcohol use since his last discha rge from our facility. The patient is here today with his two children he designates as his medical decision makers if he is unable to make his own medical decision. He wishes to be FULL CODE at this point in time. PHYSICAL EXAMINATION: GENERAL: Patient is awake, alert, pleasant, conversant, but otherwise poor historian. HEENT: Slightly dry mucous membranes. Poor dentition. Equal ocular motions are intact. Normocepha lic, atraumatic. CARDIOVASCULAR: S1, S2. No murmurs, rubs or gallops. Pulses 2+ bilateral upper extremity. Trace b ilateral pitting pedal edema. RESPIRATORY: Diminished throughout mostly clear to auscultation without any wheezes, rales or rhonch i. ABDOMEN: Positive bowel sounds, soft, nontender to palpation. NEUROLOGIC: Moving all 4 extremities independently and able to self-reposition in the bed without di fficulty or assistance. LABORATORY DATA AND IMAGING: WBC 9.1, hemoglobin 9.1, hematocrit 29.3, platelets 211. PT 14.3, INR 1.1. ABG with a pH of 7.39, pCO2 of 60.4, pO2 of 51.5. Sodium 137, potassium 4.5, chloride 97, bica rbonate 34, BUN 15, creatinine 0.74. Troponin less than 0.01 x2. B-natriuretic peptide 508.3, total protein 5.9, albumin 3.2. On 10/22/2017, chest x-ray mild interstitial edema on 10/22/2017 chest and thorax CTA. Impression: "No central segmental pulmonary embolus. Ground glass nodular opacities and predominantly in the bro nchial distribution suspicious for bronchiolitis of either infectious or inflammatory etiology. Ther e is a mildly prominent pretracheal mediastinal lymph node measuring 1 cm, small bilateral pleural ef fusions, density within the gallbladder may reflect gallbladder sludge. No visible stones were seen on the comparison CT examination dated 10/10/2017. ASSESSMENT AND PLAN: A 62-year-old male who presents with chief complaint of shortness of breath. 1. Shortness of breath. The patient's cardiac status currently appears to be stable. 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 He certainly has likely multifactorial componen t to his current presentation. Initiate empiric steroids, antibiotics, nebulizer treatments along wi th supportive oxygenation as needed. Discussed above with the patient's family and the patient at [facility]. I appreciate pulmonary consultation. 2. Recent history of atrial flutter, status post ablation, currently is in normal sinus rhythm. Con tinue to closely monitor. We will modify the antibiotic selection secondary to concern for QT prolon gation with the use of quinolones. We will opt for doxycycline and closely monitor for any further s igns or symptoms of developing pneumonia. 3. History of tobacco and alcohol use. Check urine drug screen and also check an alcohol screen and closely monitor for any signs or symptoms of withdrawal. 4. DIET: Cardiac. 5. ACTIVITY: Out of bed as tolerated with physical therapy. 6. Deep venous thrombosis prophylaxis, heparin. Thank you for asking me to care for your patient. Any questions, concerns, contact me at [facility]. Admit the patient inpatient medical/surgical. FULL CODE.
[2017-10-25] MEDS ORDERED: Non-Formulary Item 1 EACH (Ferrous Sulfate [Ferrous Sulfate] 325 MG) PO SCH (09:00)
[2017-10-25] MEDS ORDERED: Non-Formulary Item 1 EACH (Amlodipine Besylate [Amlodipine Besylate] 2.5 MG) PO SCH (09:00)
[2017-10-25] MEDS ORDERED: Non-Formulary Item 1 EACH (Omeprazole [Omeprazole] 40 MG) PO SCH (09:00)
[2017-10-25] MEDS: Amlodipine 5 MG TAB PO SCH (09:10)
[2017-10-25] MEDS: Aspirin 325 MG TAB PO SCH (09:11)
[2017-10-25] MEDS: Ferrous Sulfate 325 MG TAB PO SCH (09:12)
[2017-10-25] MEDS: Bupropion 100 MG SR TAB PO SCH ×2 (09:12→22:43)
[2017-10-25] MEDS: Heparin 5,000 UNITS/ML VIAL SC SCH ×3 (09:13→21:28)
[2017-10-25] MEDS: guaiFENesin ER 600 MG TAB PO SCH ×2 (09:13→21:28)
[2017-10-25] MEDS: Primidone 50 MG TAB PO SCH ×2 (09:14→22:43)
[2017-10-25] MEDS: Metoprolol Tartrate 25 MG TAB PO SCH ×2 (09:14→21:27)
--- NOTE | 2017-10-25 10:01 | PRG ---
DATE OF SERVICE: 10/25/2017 SERVICE: Pulmonary Medicine. INTERVAL HISTORY: The patient is doing fine from a respiratory standpoint. He is breathing comforta sonay today. He is not generating much in the way of sputum. Denies any chest pain, nausea, vomiting or shortness of breath. PHYSICAL EXAMINATION: VITAL SIGNS: Afebrile, pulse 78, blood pressure 128/70, respirations 20, saturation 95% on 3.5 liter s nasal cannula. GENERAL: The patient is awake, alert, no apparent distress. LUNGS: Slightly improved air entry. There is prolonged expiratory phase. Rhonchi are present. No crackles or wheezing appreciated. HEART: Normal rate and regular. ABDOMEN: Soft, nontender, nondistended. Bowel sounds are positive. MUSCULOSKELETAL: No cyanosis or clubbing. No pitting in the bilateral lower extremities. NEUROLOGIC: Grossly nonfocal. LABORATORY DATA: Hemoglobin 7.9 and dropping, platelets 200,000. Bicarbonate 37. Basic metabolic p rofile is otherwise unremarkable. Liver function studies are unremarkable. Blood sugar ranges from 183-256. Barbiturates, benzos, and cannabinoids are all present in the urine drug screen. Blood cul tures x2 remain unremarkable. ASSESSMENT: 1. Acute hypoxic respiratory failure. 2. Chronic obstructive pulmonary disease with acute exacerbation. 3. Pulmonary infiltrate, characterized by centrilobular ground glass opacifications, and tree-in-bud changes. 4. Tobacco abuse, ongoing. 5. Deconditioning, severe. DISCUSSION AND PLAN: We will continue our nebulized medications, antibiotics and steroids. We will get an AFB for smear and culture. Tuberculosis is within my differential, but quite low on it. That being said, we will put him on respiratory isolation until we can improve sputum is negative. Once this sample was collected, from my perspective, if he is stable for discharge, he can be sent out on a 5-day course of steroid, 7-day course of antibiotic. We will have him return to clinic in the outp atient setting.
[2017-10-25] MEDS: HumaLOG 300 UNITS/3 ML VIAL SC PRN (11:39)
--- NOTE | 2017-10-25 11:41 | PDOC.PN ---
- Subjective Encounter Start Date: 10/25/17 Encounter Start Time: 11:43 Subjective: No new complaints -: No acute events overnight. - Objective MAR Reviewed: Yes Vital Signs & Weight: Vital Signs (12 hours) Temp Pulse Resp BP Pulse Ox Pulse Ox Pulse Ox 10/25/17 09:10 78 10/25/17 08:00 98.5 F 78 20 95 10/25/17 07:55 98.5 F 78 20 128/70 95 10/25/17 07:30 90 L 84 L 10/25/17 06:49 95 10/25/17 06:48 75 16 95 10/25/17 00:00 97.8 F 68 18 134/65 93 L Pulse Ox 10/25/17 09:10 10/25/17 08:00 10/25/17 07:55 10/25/17 07:30 89 L 10/25/17 06:49 10/25/17 06:48 10/25/17 00:00 Weight Weight 142 lb I&O: 10/24/17 10/25/17 10/26/17 06:59 06:59 06:59 Intake Total 940 240 Output Total 750 Balance 190 240 Result Diagrams: 10/25/17 03:35 10/25/17 03:35 Additional Labs: Accuchecks 10/25/17 10/24/17 10/24/17 06:27 20:47 16:45 POC Glucose 183 H 207 H 207 H Phys Exam - Physical Examination Constitutional: NAD HEENT: PERRLA, moist MMs, sclera anicteric, oral pharynx no lesions Neck: no JVD, supple, full ROM Respiratory: no rales, no rhonchi, wheezing present Cardiovascular: RRR (s1 s2 only), no significant murmur, no rub Gastrointestinal: soft, non-tender, no distention, positive bowel sounds Musculoskeletal: no edema, pulses present Neurological: non-focal, moves all 4 limbs Psychiatric: normal affect, A&O x 3 Skin: no rash, normal turgor Dx/Plan (1) Acute respiratory failure Code(s): J96.00 - ACUTE RESPIRATORY FAILURE, UNSP W HYPOXIA OR HYPERCAPNIA Status: Acute Qualifiers: Respiratory failure complication: hypercapnia Qualified Code(s): J96.02 - Acute respiratory failure with hypercapnia Comment: Stable. Likely 2/2 COPD exacerbation and PNA. Continue nebs and steroids- will be tapered off. Had infiltrates on CT chest so TB being ruled out. WIll get home O2 eval as well. (2) COPD exacerbation Code(s): J44.1 - CHRONIC OBSTRUCTIVE PULMONARY DISEASE W (ACUTE) EXACERBATION Status: Acute Plan: As above (3) Afib Code(s): I48.91 - UNSPECIFIED ATRIAL FIBRILLATION Status: Chronic Qualifiers: Atrial fibrillation type: chronic Qualified Code(s): I48.2 - Chronic atrial fibrillation Comment: Rate controlled. Continue home regimen and monitor heart rate closely. Hold amiodarone for now. (4) CAD (coronary artery disease) Code(s): I25.10 - ATHSCL HEART DISEASE OF [place] CORONARY ARTERY W/O ANG PCTRS Status: Chronic Qualifiers: Coronary Disease-Associated Artery/Lesion type: bypass graft [place] vs. transplanted heart: [place] heart Associated angina: without angina Qualified Code(s): I25.810 - Atherosclerosis of coronary artery bypass graft(s) without angina pectoris Comment: Stable. Chest pain free. Continued on home medications. (5) Dyslipidemia Code(s): E78.5 - HYPERLIPIDEMIA, UNSPECIFIED Status: Chronic Comment: On Statins (6) HTN (hypertension) Code(s): I10 - ESSENTIAL (PRIMARY) HYPERTENSION Status: Chronic Qualifiers: Hypertension type: essential hypertension Qualified Code(s): I10 - Essential (primary) hypertension Comment: Controlled and at goal. Continue current medications (7) Moderate protein malnutrition Code(s): E44.0 - MODERATE PROTEIN-CALORIE MALNUTRITION Status: Chronic (8) Alcohol abuse Code(s): F10.10 - ALCOHOL ABUSE, UNCOMPLICATED Status: Chronic Comment: Counseled. (9) Physical deconditioning Code(s): R53.81 - OTHER MALAISE Status: Acute Comment: PT/OT on board. - Plan cont current plan of care, plan discussed w/ family, respiratory therapy, incentive spirometry, DVT proph w/heparin * . Review of Systems - Medications/Allergies Allergies/Adverse Reactions: Allergies Allergy/AdvReac Type Severity Reaction Status Date / Time clonazepam [From Klonopin] Allergy Verified 10/10/17 07:58 codeine Allergy Verified 10/10/17 07:58 Penicillins Allergy Verified 10/10/17 07:58 protamine Allergy Verified 10/10/17 07:58 Medications: Current Medications Albuterol Sulfate (Ventolin) 2.5 mg NEB [id number] PRN PRN Reason: Wheezing Albuterol/Ipratropium (Duoneb) 3 ml NEB Q4H PRN PRN Reason: SOB &/or Wheezing Albuterol/Ipratropium (Duoneb) 3 ml NEB [id number] [facility] Last Admin: 10/25/17 06:48 Dose: 3 ml Amlodipine Besylate (Norvasc) 2.5 mg PO DAILY [facility] Last Admin: 10/25/17 09:10 Dose: 2.5 mg Aspirin (Aspirin) 325 mg PO DAILY [facility] Last Admin: 10/25/17 09:11 Dose: 325 mg Bupropion HCl (Wellbutrin Sr) 200 mg PO BID [facility] Last Admin: 10/25/17 09:12 Dose: 200 mg Dextrose/Water (Dextrose 50%) 25 gm SLOW IVP PRN PRN PRN Reason: Hypoglycemia Ferrous Sulfate (Feosol) 325 mg PO DAILY [facility] Last Admin: 10/25/17 09:12 Dose: 325 mg Glucagon (Glucagon) 1 mg IM PRN PRN PRN Reason: Hypoglycemia Guaifenesin (Mucinex) 600 mg PO Q12HR [facility] Last Admin: 10/25/17 09:13 Dose: 600 mg Heparin Sodium (Porcine) (Heparin) 5,000 units SC TID [facility] Last Admin: 10/25/17 09:13 Dose: 5,000 units Dextrose/Water (D5w) 1,000 mls @ 0 mls/hr IV .Q0M PRN; As Directed PRN Reason: Hypoglycemia Doxycycline Hyclate 100 mg/ (Sodium Chloride) 100 mls @ 100 mls/hr IVPB 1100, 2300 [facility] Last Admin: 10/25/17 11:23 Dose: 100 mls Insulin Human Lispro (Humalog) 0 units SC .MILD SLIDING SCALE PRN PRN Reason: Mild Correctional Scale Last Admin: 10/24/17 18:34 Dose: 3 unit Levothyroxine Sodium (Synthroid) 75 mcg PO 0600 [facility] Last Admin: 10/25/17 06:19 Dose: 75 mcg Methylprednisolone Sodium Succinate (Solu-Medrol) 40 mg IVP Q12HR [facility] Metoprolol Tartrate (Lopressor) 25 mg PO BID [facility] Last Admin: 10/25/17 09:14 Dose: 25 mg Montelukast Sodium (Singulair) 10 mg PO HS [facility] Last Admin: 10/24/17 19:56 Dose: 10 mg Nitroglycerin (Nitrostat) 0.4 mg SL Q5MIN PRN PRN Reason: Chest Pain Last Admin: 10/24/17 17:18 Dose: 0.4 mg Ondansetron HCl (Zofran Odt) 4 mg PO Q6H PRN PRN Reason: Nausea/Vomiting Pantoprazole Sodium (Protonix) 40 mg PO DAILY [facility] Last Admin: 10/25/17 09:14 Dose: 40 mg Primidone (Mysoline) 50 mg PO BID [facility] Last Admin: 10/25/17 09:14 Dose: 50 mg Ropinirole HCl (Requip) 1 mg PO [facility] Last Admin: 10/24/17 19:56 Dose: 1 mg Simvastatin (Zocor) 10 mg PO [facility] Last Admin: 10/24/17 19:56 Dose: 10 mg Sodium Chloride (Flush - Normal Saline) 10 ml IVF Q12HR [facility] Last Admin: 10/25/17 09:15 Dose: 10 ml Sodium Chloride (Flush - Normal Saline) 10 ml IVF PRN PRN PRN Reason: Saline Flush Tramadol HCl (Ultram) 50 mg PO Q6H PRN PRN Reason: Moderate Pain (4-6) Last Admin: 10/25/17 02:28 Dose: 50 mg Trazodone HCl (Desyrel) 100 mg PO [facility] Last Admin: 10/24/17 21:59 Dose: 100 mg
[2017-10-25 18:02] LABS: CO2 Tension 44.4 mmHg (35.0-45.0); O2 Tension (PaO2) 55.8 mmHg (80.0-100.0); pH, Arterial 7.49 (7.35-7.45)
[2017-10-25 18:03] LABS: Actual Bicarbonate (HCO3a) 33.2 mEq/L (22-26); Calcium, Ionized 1.2 mmol/L (1.12-1.30); Hematocrit-ABG 29.9 % (42.0-52.0); Hemoglobin (Hb) 8.5 g/dL (14.0-18.0); Puncture Site RRA
[2017-10-25] MEDS: Montelukast Sodium 10 mg Tablet PO SCH (21:27)
[2017-10-25] MEDS: Simvastatin 5 MG TAB PO SCH (21:27)
[2017-10-25] MEDS: rOPINIRole HCl 1 MG TAB PO SCH (21:27)
[2017-10-25] MEDS: traZODone HCl 50 MG TAB PO SCH (21:27)
[2017-10-26 04:59] LABS: #Lymphocytes 0.5 thou/uL (1.20-3.40); #Monocytes 0.6 thou/uL (0.11-0.59); #Neutrophils 10.2 thou/uL (1.40-6.50); %Lymphocytes 4.5 % (21.0-51.0); %Monocytes 4.9 % (0.0-10.0); %Neutrophils 90.6 % (42.0-75.0); Hemoglobin 8.8 g/dL (14.0-18.0); Mean Corpuscular HGB CONC 30.8 g/dL (32.0-36.0); Mean Corpuscular Hemoglobin 26.9 pg (27.0-31.0); Mean Corpuscular Volume 87.6 fl (80.0-94.0); Mean Platelet Volume 9.3 fL (7.4-10.4); Platelet Count 199 thou/uL (130-400); RBC Distribution Width 17.1 % (11.5-14.5); Red Blood Cell (RBC) Count 3.27 mill/uL (4.70-6.10); White Blood Cell (WBC) Count 11.3 thou/uL (4.8-10.8)
[2017-10-26] MEDS: Levothyroxine Sodium 75 MCG TAB PO SCH (04:59)
[2017-10-26 05:10] LABS: Anion Gap 6 mmol/L (10-20); BUN (Urea Nitrogen) 14 mg/dL (8.4-25.7); Calc. Creatinine Clearance 104 mL/min (70-130); Carbon Dioxide 36 mmol/L (23-31); Chloride 99 mmol/L (98-107); Estimated GFR-MDRD Greater than 90; Glucose 194 mg/dL (80-115); Potassium 4.3 mmol/L (3.5-5.1); Sodium 137 mmol/L (136-145)
[2017-10-26] MEDS: Primidone 50 MG TAB PO SCH ×2 (09:31→21:13)
[2017-10-26] MEDS: Amlodipine 5 MG TAB PO SCH (09:31)
[2017-10-26] MEDS: Aspirin 325 MG TAB PO SCH (09:31)
[2017-10-26] MEDS: guaiFENesin ER 600 MG TAB PO SCH ×2 (09:31→21:10)
[2017-10-26] MEDS: Bupropion 100 MG SR TAB PO SCH ×2 (09:31→21:10)
[2017-10-26] MEDS: Metoprolol Tartrate 25 MG TAB PO SCH ×2 (09:31→21:12)
[2017-10-26] MEDS: Ferrous Sulfate 325 MG TAB PO SCH (09:31)
[2017-10-26] MEDS: Heparin 5,000 UNITS/ML VIAL SC SCH ×3 (09:32→21:15)
[2017-10-26] MEDS: traMADol HCl 50 MG TAB PO PRN (12:17)
[2017-10-26] MEDS: HumaLOG 300 UNITS/3 ML VIAL SC PRN ×2 (12:18→18:19)
--- NOTE | 2017-10-26 14:22 | PRG ---
DATE OF SERVICE: 10/26/2017 SERVICE: Pulmonary Medicine INTERVAL HISTORY: The patient is doing fine from a cardiovascular and respiratory standpoint. He de nies any current chest pain, nausea, vomiting or shortness of breath. His breathing is actually back to baseline. Otherwise, he has no specific complaints. He is going to be set up for home oxygen. PHYSICAL EXAMINATION: VITAL SIGNS: Afebrile, pulse 71, blood pressure 132/73, respirations 20, saturation 99% on 4 liters nasal cannula. GENERAL: The patient is awake, alert, no apparent distress. LUNGS: Decreased air entry. There is prolonged expiratory phase, but the rhonchi and crackles are m uch improved. HEART: Normal rate, regular. ABDOMEN: Soft, nontender, nondistended. Bowel sounds are positive. MUSCULOSKELETAL: No cyanosis or clubbing. There is no pitting in the bilateral lower extremities. NEUROLOGIC: Grossly nonfocal. LABORATORY DATA: WBC 11.3, hemoglobin 8.8, platelets 199,000. PH 7.49, pCO2 44, pO2 55.8. Bicarbon ate 36. Basic metabolic profile is otherwise unremarkable and potassium is 4.3. Blood cultures x2 a re unremarkable. ASSESSMENT: 1. Acute hypoxic respiratory failure. 2. Chronic obstructive pulmonary disease with acute exacerbation. 3. Pulmonary infiltrate, characterized by centrilobular ground glass opacifications and tree-in-bud changes. 4. Tobacco abuse, ongoing. 5. Deconditioning, severe. DISCUSSION AND PLAN: We are still waiting for the sputum sample to be stained. Either way, from my perspective, he is stable for transition home today or tomorrow. I will have him follow up with me i n clinic in 3-4 weeks in the outpatient setting to consider additional diagnostic investigations Pul [facility] Critical Care will continue to follow if he remains in house. From my perspective; however, lena berkowitz is stable for transition home.
--- NOTE | 2017-10-26 15:26 | PDOC.PN ---
- Subjective Encounter Start Date: 10/26/17 Encounter Start Time: 15:33 Subjective: No complaints. -: No acute events overnight. - Objective MAR Reviewed: Yes Vital Signs & Weight: Vital Signs (12 hours) Temp Pulse Resp BP BP Pulse Ox Pulse Ox 10/26/17 12:25 98.1 F 71 20 132/73 99 10/26/17 10:03 92 L 10/26/17 09:31 79 133/75 10/26/17 08:00 97.3 F L 98 20 133/75 93 L 10/26/17 07:16 100 16 Pulse Ox 10/26/17 12:25 10/26/17 10:03 89 L 10/26/17 09:31 10/26/17 08:00 10/26/17 07:16 Weight Weight 142 lb I&O: 10/25/17 10/26/17 10/27/17 06:59 06:59 06:59 Intake Total 240 1125 Balance 240 1125 Result Diagrams: 10/26/17 04:45 10/26/17 04:45 Additional Labs: Accuchecks 10/26/17 10/26/17 10/25/17 11:31 04:58 20:38 POC Glucose 213 H 198 H 189 H 10/25/17 16:38 POC Glucose 201 H Phys Exam - Physical Examination Constitutional: NAD HEENT: PERRLA, moist MMs, sclera anicteric Neck: no JVD, supple, full ROM Respiratory: no rales, no rhonchi, wheezing present (mild) Cardiovascular: RRR, no significant murmur, no rub Gastrointestinal: soft, non-tender, no distention, positive bowel sounds Musculoskeletal: no edema, pulses present Neurological: non-focal, moves all 4 limbs Psychiatric: normal affect, A&O x 3 Skin: no rash, normal turgor Dx/Plan (1) Acute respiratory failure Code(s): J96.00 - ACUTE RESPIRATORY FAILURE, UNSP W HYPOXIA OR HYPERCAPNIA Status: Acute Qualifiers: Respiratory failure complication: hypercapnia Qualified Code(s): J96.02 - Acute respiratory failure with hypercapnia Comment: Stable. 2/2 COPD exacerbation and PNA. Continue nebs and steroids- will be tapered off. Had infiltrates on CT chest so TB being ruled out. Will f/ u sputum AFB. (2) COPD exacerbation Code(s): J44.1 - CHRONIC OBSTRUCTIVE PULMONARY DISEASE W (ACUTE) EXACERBATION Status: Acute (3) Afib Code(s): I48.91 - UNSPECIFIED ATRIAL FIBRILLATION Status: Chronic Qualifiers: Atrial fibrillation type: chronic Qualified Code(s): I48.2 - Chronic atrial fibrillation Comment: Rate controlled. Continue home regimen. (4) CAD (coronary artery disease) Code(s): I25.10 - ATHSCL HEART DISEASE OF [place] CORONARY ARTERY W/O ANG PCTRS Status: Chronic Qualifiers: Coronary Disease-Associated Artery/Lesion type: bypass graft [place] vs. transplanted heart: [place] heart Associated angina: without angina Qualified Code(s): I25.810 - Atherosclerosis of coronary artery bypass graft(s) without angina pectoris Comment: Stable. Chest pain free. Continued on home medications. (5) Dyslipidemia Code(s): E78.5 - HYPERLIPIDEMIA, UNSPECIFIED Status: Chronic Comment: On Statins (6) HTN (hypertension) Code(s): I10 - ESSENTIAL (PRIMARY) HYPERTENSION Status: Chronic Qualifiers: Hypertension type: essential hypertension Qualified Code(s): I10 - Essential (primary) hypertension Comment: Controlled and at goal. Continue current medications (7) Moderate protein malnutrition Code(s): E44.0 - MODERATE PROTEIN-CALORIE MALNUTRITION Status: Chronic Comment: Improving with nutritional supplements. (8) Alcohol abuse Code(s): F10.10 - ALCOHOL ABUSE, UNCOMPLICATED Status: Chronic Comment: Counseled. (9) Physical deconditioning Code(s): R53.81 - OTHER MALAISE Status: Acute Comment: PT/OT on board. - Plan cont current plan of care, continue antibiotics, clinical social work therapist, respiratory therapy Will need home O2 as he continues to significantly desaturate on RA -: f/u AFB. If negative, then can be discharged home. * . Review of Systems - Medications/Allergies Allergies/Adverse Reactions: Allergies Allergy/AdvReac Type Severity Reaction Status Date / Time clonazepam [From Klonopin] Allergy Verified 10/10/17 07:58 codeine Allergy Verified 10/10/17 07:58 Penicillins Allergy Verified 10/10/17 07:58 protamine Allergy Verified 10/10/17 07:58 Medications: Current Medications Albuterol Sulfate (Ventolin) 2.5 mg NEB [id number] PRN PRN Reason: Wheezing Albuterol/Ipratropium (Duoneb) 3 ml NEB Q4H PRN PRN Reason: SOB &/or Wheezing Albuterol/Ipratropium (Duoneb) 3 ml NEB T4OR-OC [facility] Last Admin: 10/26/17 13:58 Dose: 3 ml Amlodipine Besylate (Norvasc) 2.5 mg PO DAILY [facility] Last Admin: 10/26/17 09:31 Dose: 2.5 mg Aspirin (Aspirin) 325 mg PO DAILY [facility] Last Admin: 10/26/17 09:31 Dose: 325 mg Bupropion HCl (Wellbutrin Sr) 200 mg PO BID [facility] Last Admin: 10/26/17 09:31 Dose: 200 mg Dextrose/Water (Dextrose 50%) 25 gm SLOW IVP PRN PRN PRN Reason: Hypoglycemia Doxycycline Hyclate (Vibramycin) 100 mg PO 0800,2100 [facility] Stop: 10/29/17 08:01 Ferrous Sulfate (Feosol) 325 mg PO DAILY [facility] Last Admin: 10/26/17 09:31 Dose: 325 mg Glucagon (Glucagon) 1 mg IM PRN PRN PRN Reason: Hypoglycemia Guaifenesin (Mucinex) 600 mg PO Q12HR [facility] Last Admin: 10/26/17 09:31 Dose: 600 mg Heparin Sodium (Porcine) (Heparin) 5,000 units SC TID [facility] Last Admin: 10/26/17 15:03 Dose: 5,000 units Dextrose/Water (D5w) 1,000 mls @ 0 mls/hr IV .Q0M PRN; As Directed PRN Reason: Hypoglycemia Insulin Human Lispro (Humalog) 0 units SC .MILD SLIDING SCALE PRN PRN Reason: Mild Correctional Scale Last Admin: 10/26/17 12:18 Dose: 3 unit Levothyroxine Sodium (Synthroid) 75 mcg PO 0600 [facility] Last Admin: 10/26/17 04:59 Dose: 75 mcg Metoprolol Tartrate (Lopressor) 25 mg PO BID [facility] Last Admin: 10/26/17 09:31 Dose: 25 mg Montelukast Sodium (Singulair) 10 mg PO HS [facility] Last Admin: 10/25/17 21:27 Dose: 10 mg Nitroglycerin (Nitrostat) 0.4 mg SL Q5MIN PRN PRN Reason: Chest Pain Last Admin: 10/24/17 17:18 Dose: 0.4 mg Ondansetron HCl (Zofran Odt) 4 mg PO Q6H PRN PRN Reason: Nausea/Vomiting Pantoprazole Sodium (Protonix) 40 mg PO DAILY [facility] Last Admin: 10/26/17 09:31 Dose: 40 mg Prednisone (Prednisone) 40 mg PO QAM-WM [facility] Stop: 10/28/17 08:01 Primidone (Mysoline) 50 mg PO BID [facility] Last Admin: 10/26/17 09:31 Dose: 50 mg Ropinirole HCl (Requip) 1 mg PO HS [facility] Last Admin: 10/25/17 21:27 Dose: 1 mg Simvastatin (Zocor) 10 mg PO HS [facility] Last Admin: 10/25/17 21:27 Dose: 10 mg Sodium Chloride (Flush - Normal Saline) 10 ml IVF Q12HR [facility] Last Admin: 10/26/17 09:32 Dose: 10 ml Sodium Chloride (Flush - Normal Saline) 10 ml IVF PRN PRN PRN Reason: Saline Flush Tramadol HCl (Ultram) 50 mg PO Q6H PRN PRN Reason: Moderate Pain (4-6) Last Admin: 10/26/17 12:17 Dose: 50 mg Trazodone HCl (Desyrel) 100 mg PO HS [facility] Last Admin: 10/25/17 21:27 Dose: 100 mg
[2017-10-26] MEDS: traZODone HCl 50 MG TAB PO SCH (21:10)
[2017-10-26] MEDS: Montelukast Sodium 10 mg Tablet PO SCH (21:10)
[2017-10-26] MEDS: Doxycycline 100 MG CAP PO SCH (21:10)
[2017-10-26] MEDS: Amiodarone 200 MG TAB PO SCH (21:11)
[2017-10-26] MEDS: Simvastatin 5 MG TAB PO SCH (21:12)
[2017-10-26] MEDS: rOPINIRole HCl 1 MG TAB PO SCH (21:12)
[2017-10-27 04:27] LABS: Anion Gap 8 mmol/L (10-20); BUN (Urea Nitrogen) 13 mg/dL (8.4-25.7); Calc. Creatinine Clearance 116 mL/min (70-130); Calcium 8.5 mg/dL (7.8-10.44); Carbon Dioxide 33 mmol/L (23-31); Chloride 99 mmol/L (98-107); Estimated GFR-MDRD Greater than 90; Glucose 87 mg/dL (80-115); Potassium 3.5 mmol/L (3.5-5.1); Sodium 136 mmol/L (136-145)
[2017-10-27] MEDS: Levothyroxine Sodium 75 MCG TAB PO SCH (05:36)
[2017-10-27] MEDS ORDERED: predniSONE 20 MG TAB PO SCH (08:00)
[2017-10-27] MEDS: Primidone 50 MG TAB PO SCH (08:29)
[2017-10-27] MEDS: Bupropion 100 MG SR TAB PO SCH (08:29)
[2017-10-27] MEDS: Amiodarone 200 MG TAB PO SCH (08:30)
[2017-10-27] MEDS: Amlodipine 5 MG TAB PO SCH (08:30)
[2017-10-27] MEDS: Ferrous Sulfate 325 MG TAB PO SCH (08:30)
[2017-10-27] MEDS: Aspirin 325 MG TAB PO SCH (08:30)
[2017-10-27] MEDS: Doxycycline 100 MG CAP PO SCH (08:30)
[2017-10-27] MEDS: Metoprolol Tartrate 25 MG TAB PO SCH (08:31)
[2017-10-27] MEDS: Heparin 5,000 UNITS/ML VIAL SC SCH (08:31)
[2017-10-27] MEDS: guaiFENesin ER 600 MG TAB PO SCH (08:31)
[2017-10-27 11:41] VITALS: BP 129/69; TEMP 98
--- NOTE | 2017-10-28 20:42 | EKG ---
Test Reason : SOB Blood Pressure : / mmHG Vent. Rate : 078 BPM Atrial Rate : 078 BPM P-R Int : 192 ms QRS Dur : 100 ms QT Int : 420 ms P-R-T Axes : 083 -19 071 degrees QTc Int : 478 ms Normal sinus rhythm Possible Left atrial enlargement Nonspecific T wave abnormality Prolonged QT Abnormal ECG Confirmed by CHIDI MOYER ([id number]), sound editor SINDY HO ([id number]) on 10/28/2017 8:41:23 PM Referred By: Confirmed By:CHIDI MOYER
--- NOTE | 2017-10-30 14:35 | DIS ---
DATE OF ADMISSION: 10/22/2017 DATE OF DISCHARGE: 10/27/2017 DISCHARGE DIAGNOSES: Acute respiratory failure with hypercapnia, chronic obstructive pulmonary disea se exacerbation, chronic atrial fibrillation, coronary artery disease, dyslipidemia, hypertension, mo derate protein-malnutrition, alcohol abuse and physical deconditioning. HISTORY OF PRESENT ILLNESS/HOSPITAL COURSE: Mr. Nash Warner is a 62-year-old male, recently discharged from [facility] with status post atrial flutter ablation. He presented with prog ressively worsening shortness of breath for 48 hours, initially only with exertion and progressed to rest. He denied fever or chills, but reports grossly unproductive cough. He was not sure of similar episodes in the past. His labs were largely unremarkable, but he had an ABG done with a pH of 7.39, pCO2 of 60 and pO2 of 51.2. Troponin was less than 0.21 x2 and BNP was 508.3. His chest x-ray show s interstitial edema and he had a CTA done, which showed no central segmental pulmonary embolus, but showed ground glass nodular opacities predominantly in the bronchial distribution suspicious for bron chiolitis of either infectious or inflammatory etiology. There was mild prominent pretracheal medias tinal lymph node measuring 1 cm small bilateral pleural effusions, density within the gallbladder may reflect gallbladder sludge, but no stones were seen. On examination, he had diminished breath sound s bilaterally, but no wheezes, rales or rhonchi. He was admitted for COPD exacerbation, started on d oxycycline and nebulizer therapy and he eventually developed respiratory failure and was reviewed by the cloth mercerizer back tender. TB was ruled out by 2 AFB sputums, which were negative. He was continued on nebu lizer therapy, IV steroids and eventually transitioned to p.o. prednisone. He continued to require o xygen and was discharged on home oxygen. This was secured before discharge from the hospital. DISCHARGE MEDICATIONS: Doxycycline 100 mg b.i.d., Mucinex 600 mg every 12 hours, prednisone 40 mg [place], [place] Neohaler one inhalation twice daily, omeprazole 40 mg daily, lovastatin 20 mg every even ing with supper, albuterol sulfate nebulizer 3 mL 3 times a day, ropinirole hydrochloride 1 mg oral a t bedtime, trazodone hydrochloride 100 mg at bedtime, levothyroxine sodium 75 mcg orally daily, amlod ipine 2.5 mg daily, nitroglycerin 0.4 mg sublingually every 5 minutes as needed for chest pain, primi done 50 mg twice daily, multivitamins 1 tablet daily, montelukast sodium 10 mg at bedtime, bupropion hydrochloride 100 mg twice daily, amiodarone 400 mg twice daily, aspirin 325 mg daily, metoprolol tar trate 25 mg twice daily, albuterol sulfate 2 puffs inhaled every 6 hours as needed for shortness of b reath or wheezing, ondansetron 4 mg every 6 hours as needed for nausea and vomiting, Symbicort 2 puf fs inhaled twice a day, albuterol sulfate HFA inhaler 2 puffs inhaled every 4 hours as needed for desirae rtness of breath or wheezing and ferrous sulfate 325 mg daily. PHYSICAL EXAMINATION: He was examined on the day of discharge. VITAL SIGNS: Temperature 98 degrees Fahrenheit, respiratory rate 20, pulse rate 84, oxygen saturatio n 93% on 3 liters of oxygen by nasal cannula and blood pressure 129/69. GENERAL: Not in acute distress, sitting comfortably in bed, off oxygen and saturating well while on room. HEENT: PERRLA. Sclerae are anicteric, not pale. Moist mucous membranes. RESPIRATORY: Vesicular breath sounds. No wheezing. CARDIOVASCULAR: Regular rate and rhythm. S1 and S2. No murmurs, rubs or gallops. GASTROINTESTINAL: Soft, nontender and nondistended. Bowel sounds normoactive. No hepatosplenomegal y. MUSCULOSKELETAL: No edema. Pulses present. NEUROLOGIC: Alert and well oriented. No focal deficits. PSYCHIATRIC: Normal mood and affect. SKIN: Warm, dry and well perfused. No rashes or lesions. LABORATORY DATA: WBC 11.3 (steroid induced), hemoglobin 8.8 and platelet count 199. Sodium 136, pot assium 3.5, chloride 99, carbon dioxide 33, anion gap 8, BUN 13, creatinine 0.61, glucose 87 and calc ium 8.5. PROCEDURES PERFORMED: None. IMAGING DATA: Spleen ultrasound shows spleen size upper normal. CTA and chest x-ray as stated in HP I. CONSULTS: Pulmonology. DIET: Heart healthy. CONDITION AT DISCHARGE: Stable and improved. ACTIVITY: To resume as tolerated. CARE GOES: To follow up with his primary care physician within 1 week for repeat labs. DISCHARGE TIME: 65 minutes including chart review and documentation.
[2017-11-03] MEDS ORDERED: Amiodarone 200 MG TAB PO SCH (09:00)
== END 2017-10-27 11:41 | disposition home health service (06) | DRG 189 ==
LOC: ERS 13:29 → 2NO 15:30 → T4-B 10-24 14:42
PROVIDERS: ADMIT Internal Medicine; ATTEND Internal Medicine
DX: E87.2 Acidosis; I10 Essential (primary) hypertension; J44.1 Chronic obstructive pulmonary disease with (acute) exacerbation; I25.10 Atherosclerotic heart disease of native coronary artery without angina pectoris; E44.0 Moderate protein-calorie malnutrition; Z68.20 Body mass index [BMI] 20.0-20.9, adult; F17.210 Nicotine dependence, cigarettes, uncomplicated; Z99.81 Dependence on supplemental oxygen; E78.5 Hyperlipidemia, unspecified; Z95.1 Presence of aortocoronary bypass graft; F03.90 Unspecified dementia, unspecified severity, without behavioral disturbance, psychotic disturbance, mood disturbance, and anxiety; F10.10 Alcohol abuse, uncomplicated; Z88.0 Allergy status to penicillin; J96.02 Acute respiratory failure with hypercapnia; I48.2 Chronic atrial fibrillation
CPT/HCPCS: 36415; 36416; 71045; 71275; 76705; 80048; 80053; 80076; 80306; 80307; 82330; 82553; 82803; 82805; 83605; 83690; 83735; 83880; 84443; 84484; 85025; 85610; 85730; 87040; 87116; 87206; 93005; 94640; 96374; 96375; A4216; G8978-GP-CI; G8979-GP-CI; G8987-GO-CI; G8988-GO-CI; G8989-GO-CI; J1644; J1940; J2920; J2930; J7050; J7506; J7611; J7620

== ENCOUNTER 2018-11-27 15:05 | Outpatient (CLI) | payer OTHER ==
--- NOTE | 2018-11-27 15:20 | RAD ---
XR Chest Pa Lat @ [facility] HISTORY: Dyspnea COMPARISON: 10/22/2017 exam FINDINGS: Heart size within normal limits. There are postop sternotomy changes. Lungs are clear of an y infiltrative process. No significant bony findings. IMPRESSION: Stable exam.
== END 2018-11-27 15:06 | disposition home or self-care (01) ==
LOC: RAD 15:05
PROVIDERS: ATTEND Internal Medicine
DX: R06.00 Dyspnea, unspecified (principal)
CPT/HCPCS: 71046

== ENCOUNTER 2019-01-04 10:04 | Outpatient (CLI) | payer OTHER ==
--- NOTE | 2019-01-04 11:11 | CT ---
CT CHEST WITHOUT IV CONTRAST: HISTORY: Follow up nodule. COPD. COMPARISON: CT angio chest from 10/22/2017. FINDINGS: There are several bilateral nodules, up to 0.5 cm in the right upper lobe and up to 0.3 cm in the lef t lung. There is some minimal scarring in both apices, slightly more prominent on the right side. T hree-vessel coronary artery calcific disease. No mediastinal mass or adenopathy. No acute pulmonary parenchymal process. No pleural effusion or pericardial effusion. IMPRESSION: Multiple stable bilateral pulmonary nodules, as above. Consider one year follow-up exam for further evaluation. Other findings as above. POS: OFF
== END 2019-01-04 10:05 | disposition home or self-care (01) ==
LOC: BICCT 10:04
PROVIDERS: ATTEND Internal Medicine
DX: J44.9 Chronic obstructive pulmonary disease, unspecified (principal); J96.11 Chronic respiratory failure with hypoxia; R91.1 Solitary pulmonary nodule; I25.10 Atherosclerotic heart disease of native coronary artery without angina pectoris; R91.8 Other nonspecific abnormal finding of lung field; J98.4 Other disorders of lung
CPT/HCPCS: 71250

== ENCOUNTER 2019-04-09 08:52 | Outpatient (CLI) | payer OTHER ==
[2019-04-09 09:38] LABS: Actual Bicarbonate (HCO3a) 21.7 mEq/L (22-28); Base Excess (BEa) -0.1 mEq/L (-2.0 to +3.0); CO2 Tension 27.9 mmHg (35.0-45.0); O2 Tension (PaO2) 98.9 mmHg (> 80.0); pH, Arterial 7.51 (7.35-7.45)
[2019-04-09 09:39] LABS: Carboxyhemoglobin (COHb) 3.9 gm% (0.0-3.0); Hemoglobin (Hb) 14.2 g/dL (14.0-18.0)
[2019-04-09 09:40] LABS: Analyzer IN Cardio OR; Calcium, Ionized 1.15 mmol/L (1.12-1.30); Potassium - ABG Lab 3.84 mmol/L (3.70-5.30); Puncture Site RR
[2019-04-09 09:41] LABS: ALV-art Gradient 15.955 (0-20)
== END 2019-04-09 08:53 | disposition home or self-care (01) ==
LOC: CP 08:52
PROVIDERS: ATTEND Internal Medicine
DX: J44.9 Chronic obstructive pulmonary disease, unspecified (principal); J96.11 Chronic respiratory failure with hypoxia
CPT/HCPCS: 82805

== ENCOUNTER 2020-05-25 06:55 | Outpatient (CLI) | payer OTHER ==
[2020-05-25 13:48] LABS: ALT (SGPT) 47 U/L (8-55); AST (SGOT) 41 U/L (5-34); Albumin 4.2 g/dL (3.4-4.8); Alkaline Phosphatase 98 U/L (40-110); Anion Gap 16 mmol/L (10-20); BUN (Urea Nitrogen) 15 mg/dL (8.4-25.7); Bilirubin, Direct 0.2 mg/dL (0.1-0.3); Bilirubin, Total 0.4 mg/dL (0.2-1.2); Calc. Creatinine Clearance 0 mL/min (70-130); Calcium 9.6 mg/dL (7.8-10.44); Carbon Dioxide 23 mmol/L (23-31); Cardiac Risk 2.2 (Less than 4.5); Chloride 103 mmol/L (98-107); Cholesterol 167 mg/dl (< 200 Desired); Estimated GFR-MDRD 83; Glucose 115 mg/dL (80-115); HDL Cholesterol 77 mg/dL (>60 Neg Risk); LDL Cholesterol, Calculated 71 mg/dL; Potassium 4.6 mmol/L (3.5-5.1); Protein, Total 7.1 g/dL (5.8-8.1); Sodium 137 mmol/L (136-145); Triglycerides 97 mg/dL (Less than 150)
[2020-05-25 14:05] LABS: #Basophils 0.1 10x3/uL (0.0-0.2); #Eosinphils 0.1 10x3/uL (0.0-0.5); #Neutrophils 7.1 10x3/uL (1.5-8.4); %Basophils 0.9 % (0.0-2.0); %Eosinophils 1.4 % (0.0-6.0); %Lymphocytes 16.6 % (18.0-47.0); %Monocytes 10.2 % (0.0-10.0); %Neutrophils 70.4 % (40.0-75.0); Hemoglobin 15.1 g/dL (14.0-18.0); Mean Corpuscular HGB CONC 32.6 G/DL (32.0-36.0); Mean Corpuscular Volume 98.1 fl (80.0-100.0); Platelet Count 105 10x3/uL (130-400); RBC Distribution Width 12.4 % (11.5-14.5); Red Blood Cell (RBC) Count 4.72 10x6/uL (4.40-5.80)
[2020-05-25 14:17] LABS: PTT 25.3 sec (22.0-33.0); Prothrombin Time 10.3 sec (9.5-12.1)
--- NOTE | 2020-05-25 21:09 | EKG ---
Test Reason : PREOP Blood Pressure : / mmHG Vent. Rate : 093 BPM Atrial Rate : 312 BPM P-R Int : 000 ms QRS Dur : 100 ms QT Int : 374 ms P-R-T Axes : 000 -78 091 degrees QTc Int : 465 ms Atrial flutter with variable A-V block Left anterior fascicular block Septal infarct , age undetermined Abnormal ECG No previous ECGs available Confirmed by Britney AMEZCUA ([id number]) on 05/25/2020 9:09:15 PM Referred By: MARIA C Confirmed By:Britney AMEZCUA
[2020-05-26 12:11] LABS: SARS-CoV-2 MS2 Positive; SARS-CoV-2 N Gene Negative; SARS-CoV-2 S Gene Negative; SARS-CoV-2 by NAA Not Detected (NotDetected); SARS-CoV-2 orf1ab Negative
== END 2020-05-25 06:56 | disposition home or self-care (01) ==
LOC: LABBT 06:55
PROVIDERS: ATTEND Internal Medicine Cardiovascular Disease
DX: Z01.818 Encounter for other preprocedural examination (principal); Z20.828 Contact with and (suspected) exposure to other viral communicable diseases; I48.92 Unspecified atrial flutter
CPT/HCPCS: 80048; 80061; 80076; 84443; 85025; 85610; 85730; 87635; 93005; 93010; U0003

== ENCOUNTER 2020-05-27 10:33 | Day surgery (SDC) | payer OTHER, SELFPAY ==
[2020-05-26 11:05] VITALS: BMI 20.9
[2020-05-27] MEDS ORDERED: Ketamine 50 MG/ML (10ML VIAL) ONE (11:47)
[2020-05-27] MEDS ORDERED: Propofol 1,000 MG/100 ML VIAL IV ONE (11:47)
[2020-05-27] MEDS ORDERED: PROPOFOL 20 ML ONE (11:48)
--- NOTE | 2020-05-27 21:12 | EKG ---
Test Reason : POST SUKHJINDER/CARDIOVERSI Blood Pressure : / mmHG Vent. Rate : 075 BPM Atrial Rate : 075 BPM P-R Int : 222 ms QRS Dur : 096 ms QT Int : 414 ms P-R-T Axes : 085 -73 067 degrees QTc Int : 462 ms Sinus rhythm with 1st degree A-V block Left axis deviation Pulmonary disease pattern Abnormal ECG When compared with ECG of 25-MAY-2020 12:34, Sinus rhythm has replaced Atrial flutter Confirmed by Britney AMEZCUA ([id number]) on 05/27/2020 9:11:25 PM Referred By: MARIA C Confirmed By:Britney AMEZCUA
--- NOTE | 2020-05-28 10:10 | OP ---
DATE OF PROCEDURE: 05/27/2020 PROCEDURE PERFORMED: Electrocardioversion. INDICATION: This is a 64-year-old gentleman with paroxysmal atrial fibrillation. DESCRIPTION OF PROCEDURE: The patient was taken to the PACU. The patient was sedated by Anesthesiology. The patient was shocked with 200 joules of synchronized electricity. The patient was converted to normal sinus rhythm. IMPRESSION: Successful electrocardioversion. Job ID: [id number]
--- NOTE | 2020-05-28 10:10 | OP ---
DATE OF PROCEDURE: 05/27/2020 PRIMARY CARE PHYSICIAN: Dr. Maggy Cage. PROCEDURE PERFORMED: Transesophageal echocardiogram. INDICATIONS: This is a 64-year-old gentleman with paroxysmal atrial fibrillation. DESCRIPTION OF PROCEDURE: The patient was taken to the PACU. The patient was sedated by Anesthesiology. A transesophageal probe was placed into the distal esophagus and stomach. Echocardiographic images were obtained. The transesophageal probe was removed. FINDINGS: 1. Normal left ventricular systolic function. 2. Normal mitral and aortic valves. 3. Mild tricuspid regurgitation. 4. Status post closure of the left atrial appendage. 5. Atherosclerotic debris in the descending aorta. IMPRESSION: Left atrial appendage is well ligated. Job ID: [id number]
== END 2020-05-27 13:43 | disposition home or self-care (01) ==
LOC: SDC 10:33
PROVIDERS: ATTEND Internal Medicine Cardiovascular Disease
PROC: B245ZZ4 Ultrasonography of Left Heart, Transesophageal (ICD-10-PCS; principal; 2020-05-27)
PROC: 5A2204Z Restoration of Cardiac Rhythm, Single (ICD-10-PCS; principal; 2020-05-27)
DX: I48.0 Paroxysmal atrial fibrillation (principal); I48.4 Atypical atrial flutter; I07.1 Rheumatic tricuspid insufficiency; I10 Essential (primary) hypertension; I25.10 Atherosclerotic heart disease of native coronary artery without angina pectoris; E78.00 Pure hypercholesterolemia, unspecified; F17.210 Nicotine dependence, cigarettes, uncomplicated; Z79.82 Long term (current) use of aspirin; Z79.899 Other long term (current) drug therapy; Z88.0 Allergy status to penicillin; Z88.5 Allergy status to narcotic agent; Z88.8 Allergy status to other drugs, medicaments and biological substances; Z95.1 Presence of aortocoronary bypass graft
CPT/HCPCS: 92960; 93005; 93010; 93312; J2704

== ENCOUNTER 2021-01-19 17:19 | Emergency (ER) | payer SELFPAY ==
[2021-01-19 18:17] LABS: #Eosinphils 0.1 thou/uL (0.0-0.7); #Lymphocytes 1.7 thou/uL (1.20-3.40); #Monocytes 1.2 thou/uL (0.11-0.59); #Neutrophils 14.1 thou/uL (1.40-6.50); %Basophils 0.3 % (0.0-1.0); %Eosinophils 0.7 % (0.0-10.0); %Lymphocytes 10.1 % (21.0-51.0); %Monocytes 6.9 % (0.0-10.0); Hemoglobin 13.7 g/dL (14.0-18.0); Mean Corpuscular HGB CONC 32.3 g/dL (32.0-36.0); Mean Corpuscular Hemoglobin 31.9 pg (27.0-31.0); Mean Corpuscular Volume 98.6 fL (78.0-98.0); Mean Platelet Volume 10.3 fL (7.4-10.4); Platelet Count 159 thou/uL (130-400); RBC Distribution Width 12.3 % (11.5-14.5); Red Blood Cell (RBC) Count 4.29 mill/uL (4.70-6.10); White Blood Cell (WBC) Count 17.2 thou/uL (4.8-10.8)
[2021-01-19 18:37] LABS: ALT (SGPT) 31 U/L (8-55); AST (SGOT) 23 U/L (5-34); Albumin 3.7 g/dL (3.4-4.8); Alkaline Phosphatase 113 U/L (40-110); Anion Gap 15 mmol/L (10-20); BUN (Urea Nitrogen) 10 mg/dL (8.4-25.7); Bilirubin, Total 0.2 mg/dL (0.2-1.2); Calc. Creatinine Clearance 0 mL/min (70-130); Calcium 9.6 mg/dL (7.8-10.44); Carbon Dioxide 26 mmol/L (23-31); Chloride 98 mmol/L (98-107); Glucose 144 mg/dL (80-115); Lipase 50 U/L (8-78); Potassium 3.9 mmol/L (3.5-5.1); Protein, Total 6.7 g/dL (5.8-8.1); Sodium 135 mmol/L (136-145)
[2021-01-19] MEDS ORDERED: Ketorolac Tromethamine 30 MG/ML VIAL ONE (19:47)
[2021-01-19 21:38] LABS: Bilirubin Negative (Negative); Blood, Urine Negative (Negative); Clarity Clear (Clear); Glucose, Urine (Dipstick) Normal (Negative); Ketone, Urine Negative (Negative); Leukocyte Negative Leu/uL (Negative); Nitrite Negative (Negative); Protein, Urine (Dipstick) Negative (Neg-Trace); Specific Gravity, Urine 1.016 (1.002-1.036); Urobilinogen Normal mg/dL (Less than 2); pH, Urine 6.5 (5.0-9.0)
== END 2021-01-19 22:07 | disposition home or self-care (01) ==
LOC: ERS 17:19
DX: N45.1 Epididymitis (principal); I48.91 Unspecified atrial fibrillation; J44.9 Chronic obstructive pulmonary disease, unspecified; E03.9 Hypothyroidism, unspecified; I25.2 Old myocardial infarction; F17.210 Nicotine dependence, cigarettes, uncomplicated
CPT/HCPCS: 36415; 76870; 80053; 81003; 83690; 85025; 93005; 93976; 96372; J1885